=== PATIENT | male | born 1930 | race Caucasian/White ===

== ENCOUNTER 2016-08-08 13:53 | Emergency (ER) | payer OTHER ==
[~2016-08-08] VITALS: Ht 177.8 cm; Wt 100.0 kg
[~2016-08-08 13:53] MED LIST: COEN200C4 PEG; DVN80 PO; OMEG10007 PO; PLV75 PO; ROSU5TAB PO; TPRSR50 PO
[2016-08-08 14:04] VITALS: TEMP 36.9; Ht 177.8 cm; Wt 100.0 kg
--- NOTE | 2016-08-08 14:40 | DIAGNOSTIC IMAGING REPORT ---
RIGHT FOOT MIN 3 VIEWS ROUTINE CLINICAL HISTORY: Right foot pain. Trauma. COMPARISON: None DISCUSSION: No acute fractures are visualized. There are no erosive or destructive changes. There are mild degenerative changes. Periarticular calcifications are visualized at the level of the second and third metatarsal phalangeal joints. IMPRESSION: No acute fractures or dislocations identified. Electronically signed by: Evin Obrien M.D. 08/08/2016 2:38 PM Dictated Date/Time: 08/08/2016 2:37 PM
--- NOTE | 2016-08-08 15:16 | EMERGENCY ROOM VISIT NOTE ---
ED Visit Note First contact with patient: 14:09 CHIEF COMPLAINT: Right foot injury 1 hour ago HISTORY OF PRESENT INJURY: Patient is an 86-year-old white male who presents to the emergency department for evaluation of right foot pain that began one hour ago. He notes that he has been having pain in the bottom of his right foot laterally for a few weeks. 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 He did not injure himself in the fall. He has pain when he tries to bear weight on the foot. He lives at [place], and his went to the wellness center. They put him in a wheelchair and were able to get him in the vehicle. He has not had any medication for discomfort which he rates a 3/10 presently. No numbness or weakness. REVIEW OF SYSTEMS: Review of systems as per HPI. All other systems reviewed were negative. At least 6 systems reviewed. PMH: Electronic medical records are reviewed and summarized as above/below. See Problem List. SOCIAL HISTORY: The patient lives at home with his . PHYSICAL EXAM: Vital Signs: Reviewed Nurse's notes. GENERAL: Patient is a pleasant, well-appearing 86-year-old white male who is awake and alert and seated in a wheelchair in no acute distress. Appears generally than his stated age. MUSCULOSKELETAL: Examination of the right foot and ankle do not note any obvious swelling, deformity or ecchymosis. He has tenderness to palpation on the plantar aspect of the foot along the fifth metatarsal. He does not have any pain over the metatarsal heads or over the arch of the foot and no pain over the plantar fascia distribution. He does not have any pain on the dorsum of the foot. No pain over the medial or lateral malleolus or the lateral ankle ligaments. Lisfranc joint is negative. Distal pulses are easily palpable. Sensation to light touch is intact. Range of motion limited secondary to pain. The skin is intact. EMERGENCY DEPARTMENT COURSE: Patient declined medication for discomfort. X- rays of the right foot were obtained and were negative for acute fracture. Differential diagnosis includes fracture, sprain, dislocation, contusion, stress fracture, among others. The patient was fitted with a postoperative shoe and instructed on a weight bear as tolerated gait using crutches. He is encouraged to follow-up with orthopedics if his symptoms are not improving in the next 3-5 days. RIGHT FOOT MIN 3 VIEWS ROUTINE CLINICAL HISTORY: Right foot pain. Trauma. COMPARISON: None DISCUSSION: No acute fractures are visualized. There are no erosive or destructive changes. There are mild degenerative changes. Periarticular calcifications are visualized at the level of the second and third metatarsal phalangeal joints. IMPRESSION: No acute fractures or dislocations identified. Problem List Medical Problems: (1) CAD (coronary artery disease) Status: Chronic (2) Diverticulitis Status: Resolved (3) Exertional chest pain Status: Resolved (4) H/O heart artery stent Status: Chronic (5) Pacemaker Status: Chronic Current/Historical Medications Scheduled Clopidogrel Bisulfate (Clopidogrel), 75 MG PO QAM Coenzyme Q10 (Ubidecarenone) (Co Q-10), 200 MG PO DAILY Dexlansoprazole (Dexilant), 60 MG PO TFS Fish Oil ([place]-3), 4,800 MG PO DAILY Isosorbide Mononitrate Ext Rel (Imdur Ext Rel), 120 MG PO QAM Metoprolol Succinate (Metoprolol Succinate ER), 50 MG PO QAM Probiotic Product (Probiotic), 1 CAP PO DAILY Pyridoxine (Vitamin B6), 100 MG PO DAILY Rivaroxaban (Xarelto), 20 MG PO DAILY Rosuvastatin Calcium (Crestor), 5 MG PO DAILY Valsartan (Diovan), 80 MG PO DAILY Allergies Coded Allergies: Unclassified Drugs (Verified Adverse Reaction, Unknown, sleeping medications cause oversedation, 03/09/16) Uncoded Allergies: ANESTHESIA (Adverse Reaction, Severe, NAUSEA, 08/08/16) IT TAKES THE PATIENT A LONG TIME TO COME OUT OF IT AND IT MAKES HIM NAUSEA UNK MUSCLE RELAXANT (Adverse Reaction, Unknown, GI SYMPTOMS, 08/26/15) Vital Signs Date Time Temp Pulse Resp B/P Pulse Ox O2 Delivery O2 Flow Rate FiO2 08/08/16 15:35 66 18 109/71 95 08/08/16 14:04 36.9 66 18 99/64 91 Room Air Departure Information Impression Primary Impression: Right foot sprain Referrals Kareem Sanchez M.D. (PCP) Patient Instructions My [facility] Additional Instructions Acetaminophen(Tylenol) may be used for fever or pain. Use 1000mg every six hours as needed. Avoid using more than 3000mg in a 24 hour period. This medication can be taken if you need to drive, work, or perform activities which may be dangerous when taking narcotic pain medication. Ice compresses for 20 minutes at a time four times daily for 2-3 days. Use the postoperative shoe and walker as instructed. Rest and elevate your injury. Continue current medications. Return to the ER immediately for any numbness, tingling, severe pain, extreme swelling in the extremity or as needed. Follow-up with your primary care provider or orthopedic surgery if your symptoms are not improving in the next 3-5 days.
[2016-08-08 15:35] VITALS: BP 109/71; PULSE 66; O2SAT 95
--- NOTE | 2016-08-09 10:25 | EMERGENCY ROOM VISIT NOTE ---
ED Visit Note First contact with patient: 14:09 I have personally evaluated this patient examined her and reviewed the pertinent labs and data. I have discussed the case with Tamie Mckeon,the physician medicine assistant and agree with the plan. Please refer to the PA note This patient comes in after having right foot pain. This has been going on for several days however he injured it again today. He has some mild tenderness on my exam and the midfoot and slightly laterally. It is not red or warm or swollen. He has normal Achilles function. He has bounding pulses. He has nothing to suggest DVT. He is no proximal tenderness in the leg or the ankle. X-rays do not show any fractures. He appears have a foot sprain. We will have him use a fracture shoe and rest, ice, and elevate. follow-up with his regular doctor or orthopedist for recheck.
[2016-08-22] MEDS ORDERED: ASPEC81 PO (11:22)
[2016-08-22] MEDS ORDERED: AMLO2.5T PO (11:22)
[2016-08-22] MEDS ORDERED: VALS40TA2 PO (11:22)
[2017-01-29] MEDS ORDERED: DEXL60CA4 PO (08:27)
[2017-01-29] MEDS ORDERED: MISCCAP80 PO (08:27)
[2017-01-29] MEDS ORDERED: RIVA1TAB4 PO (08:27)
[2017-01-29] MEDS ORDERED: ISOS120T5 PO (11:04)
[2017-01-29] MEDS ORDERED: PYRI100T4 PO ×2 (11:05→20:59)
[2017-01-29] MEDS ORDERED: COEN1CAP37 PO (14:33)
[2017-01-29] MEDS ORDERED: OMEG10007 PO (14:37)
[2017-01-29] MEDS ORDERED: RANO500T PO (15:28)
== END 2016-08-08 15:36 | disposition home or self-care (01) ==
LOC: C.EDB 13:54 → C.EDD 15:36
DX: S93.601A Unspecified sprain of right foot, initial encounter (principal); X50.9XXA Other and unspecified overexertion or strenuous movements or postures, initial encounter; Y93.H2 Activity, gardening and landscaping; I25.10 Atherosclerotic heart disease of native coronary artery without angina pectoris; Z95.5 Presence of coronary angioplasty implant and graft; Z95.0 Presence of cardiac pacemaker

== ENCOUNTER 2016-08-22 08:29 | Observation (INO) | payer OTHER ==
[~2016-08-22] VITALS: Ht 180.3 cm; Wt 102.6 kg
[2016-08-22] VITALS (7 sets, daily range): BP systolic 99–143; BP diastolic 65–81; PULSE 65–70; TEMP 36.3–36.8; O2SAT 95–98; Ht 180.3 cm; Wt 102.6 kg
[~2016-08-22 08:29] MED LIST changes: -COEN200C4 PEG; -OMEG10007 PO
[2016-08-22] MEDS ORDERED: NiCARDipine HCL INJ 2.5 MG/ML 10 ML AMP ONE (09:17)
[2016-08-22] MEDS ORDERED: MIDAZOLAM HCL 1 MG/ML 2ML VIAL ONE (09:18)
[2016-08-22] MEDS ORDERED: HEPARIN SOD (PORCINE) 1000 UNIT/ML 10 ML VIAL ONE (09:18)
[2016-08-22] MEDS ORDERED: NITROGLYCERIN/D5W 100MCG/ML 20ML SYR ONE (09:19)
[2016-08-22] MEDS ORDERED: FENTANYL CITRATE INJ 50 MCG/1 ML 2 ML VIAL ONE (09:19)
--- NOTE | 2016-08-22 09:37 | History & Physical Bridge Note ---
H&P Re-Evaluation Bridge Note: I have examined the patient, reviewed the History & Physical and in the interval since the performance of the History & Physical I have noted the following changes of clinical significance: No changes noted
--- NOTE | 2016-08-22 09:38 | Procedure Note ---
Pre-Mod Sedation Assessment General Date of Moderate Sedation: August 22, 2016. Vital Signs: Vital Signs Past 12 Hours Date Time Temp Pulse Resp B/P Pulse Ox O2 Delivery O2 Flow Rate FiO2 08/22/16 08:50 36.7 68 16 99/65 98 Room Air Review Cardiovascular: regular rate, rhythm, no edema Abdomen: normal bowel sounds, non tender Lungs: chest non-tender, lungs clear Airway Class: III Pre-Sedation Airway Assessment Oral Cavity: WNL Able to Visualize Vocal Cords: No Short Thick Neck: No Hx of Sleep Apnea: No Smoking Status: Former Smoker Mallampati Classification: Class III ASA Classification: Class III Procedure Planning Contraindications-for Mod Sed: None Yes Notes The planned sedation has been discussed with the patient and consent obtained. I have identified the patient, determined the appropriateness of sedation and have assessed the patient immediately prior to the procedure. All medicine(s) and interventions are by my order.
[2016-08-22] MEDS ORDERED: ADENOSINE IV SOLN 3 MG/ML 20 ML VIAL ONE (10:09)
[2016-08-22] MEDS: ADENOSINE IV SOLN 3 MG/ML 20 ML VIAL ONE (10:11)
--- NOTE | 2016-08-22 11:06 | Procedure Note ---
Post-Mod Sedation Assessment General Date of Moderate Sedation August 22, 2016. Vital Signs: Vital Signs Past 12 Hours Date Time Temp Pulse Resp B/P Pulse Ox O2 Delivery O2 Flow Rate FiO2 08/22/16 08:50 36.7 68 16 99/65 98 Room Air Review - Discharge Criteria Vital Signs Stable: Yes Alert/Oriented/Conversant: Yes Returned to Baseline Mental St: Yes Nausea Absent/Minimal: Yes Pain/Discomfort/Absent/Minimal: Yes Normal/Baseline Respirations: Yes Active Bleeding?: No Pt Received D/C Instructions: Yes Prescriptions Given: Transmitted Specific Proced. D/C Criteria Distal Pulses Present (Cardiac: Yes Groin site assessed-Card Cath: N/A Voided Prior To Discharge: N/A Discharged Patients Adult Escort/Transportation: Yes
--- NOTE | 2016-08-22 11:19 | Cardiac Catheterization ---
Procedure Note Procedure Date August 22, 2016. 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 Ron Sales Service Supervisor(s) Liu Estimated Blood Loss 18 Medication(s) Fentanyl, Heparin, Nitroglycerin, Versed, Lidocaine 1% Summary of Findings Indication: Angina, dyspnea on exertion Access: 6Fr Right Radial artery Catheters: [place], JL 3.5, JR 4; Ikari 3.5 guide Findings: LM - Ostial 20% stenosis LAD - Proximal and mid segment stents are widely patent. Distal to mid segment stent 30-40% stenosis. 70-80% very distal segment stenosis prior to vessel wrapping around apex. 1st diagonal with 70% ostial stenosis. 2nd diagonal 40- 50% ostial stenosis. Circumflex - 30-40% proximal stenosis. 40-50% proximal stenosis in OM2 RCA - Dominant, 40-50% distal focal stenosis. Distal luminal irregularities in PDA/PLBs. LVEDP - 11 FFR of RCA performed with Ikari 3.5 guide and straight FFR wire. FFR distal RCA 0.97 Attempt made at balloon angioplasty of very distal LAD. Unable to easily pass balloon into distal vessel. Decision made to abort procedure as net clinical benefit of continued attempts at procedure seemed limited. Arterial Closure: TR Band Summary: 1. Moderate to severe multivessel coronary artery disease - Patent proximal and mid LAD stents - 40-50% distal RCA (FFR 0.97) - 40-50% proximal circumflex, OM2 - 70-80% very distal LAD 2. Normal intracardiac filling pressure Recommendations: Optimize anti-anginal regimen -- continue metoprolol and imdur. Will reduce valsartan and add amlodipine. Will titrate as able. If continued symptoms ranexa an option. Continued ASCVD risk factor modification Now 6 months out from prior stent -- can discontinue plavix and continue ASA 81 mg and Xarelto. Follow-up with me in 2-3 weeks. Hemodynamics Rest Ao: 98/58/72 Specimens None Radiation Exposure (mGy) 3903 Contrast (mls) 145 Visipaque Fluids (cc crystalloids) 110 Drains None Anesthesia Moderate (Start Procedural Complication(s) None Disposition Events Intern Holding/Recovery ACC Data Cardiac Status Clinical evaluation leading to the procedure CAD Presntation: Unstable angina Anginal Classification: CCS III Heart Failure: No, NYHA Class: CCS I Cardiogenic Shock w/in 24Hrs: No Cardiac Arrest w/in 24Hrs: No Imaging studies past 6 months: No Stress studies past 6 months: No Standard Exercise Stress Test: No Stress Echocardiogram: No Stress Testing w/SPECT MPI: No Cardiac CTA: No Coronary Anatomy Dominant: Right Left Main (% Stenosis): Ostial (20) LAD (% Stenosis): Distal (70-80) D1 (% Stenosis): Ostial (70) D2 (% Stenosis): Ostial (40) Circumflex (% Stenosis): Proximal (40) OM2 (% Stenosis): Proximal R PDA (% Stenosis): Distal (40) Diagnostic Physician's Name: Jorge Ron MD Status: Elective Closure Device Percutaneous Entry Location: Radial Closure Device: Radial Band Recommendations: Medical therapy and/or Counseling Intraprocedure Events Significant Dissection: No Perforation: No
[2016-08-22] MEDS ORDERED: VALS40TA2 PO (11:22)
[2016-08-22] MEDS ORDERED: AMLO2.5T PO (11:22)
[2016-08-22] MEDS ORDERED: ASPEC81 PO (11:22)
--- NOTE | 2016-08-22 11:23 | Discharge Instructions ---
Discharge Instructions Procedure Procedure Date: August 22, 2016. Reason for Visit: Cad *. Discharge Discharge Date: August 22, 2016. Discharge Diagnosis: Coronary artery disease Last Recorded Wt (Kilograms): 101.5 Anesthesia Post Anesthesia Instructions: If you have had General Anesthesia or IV Sedation: * Do not drive today. * Resume driving when surgeon permits. * Do not make important decisions or sign legal documents today. * Call surgeon for: 1. Temperature elevations greater than 101 degrees F. 2. Uncontrollable pain. 3. Excessive bleeding. 4. Persistent nausea and vomiting. 5. Medication intolerance (nausea, vomiting or rash). * For nausea and vomiting use only clear liquids such as: tea, soda, bouillon until nausea subsides, then gradually increase diet as tolerated. * If you have any concerns or questions, call your surgeon's office. If physician is unavailable and it is an emergency, call 911 or go to the nearest emergency room. Instructions Activity Recommendations: limitations as noted below Recommended Home Diet: resume previous diet Allergies: Coded Allergies: Unclassified Drugs (Verified Adverse Reaction, Unknown, sleeping medications cause oversedation, 03/09/16) Uncoded Allergies: ANESTHESIA (Adverse Reaction, Severe, NAUSEA, 08/08/16) IT TAKES THE PATIENT A LONG TIME TO COME OUT OF IT AND IT MAKES HIM NAUSEA UNK MUSCLE RELAXANT (Adverse Reaction, Unknown, GI SYMPTOMS, 08/26/15) Follow Up Additional Instructions: ACTIVITY RECOMMENDATIONS: It is common to feel weak and fatigue for a few days. * Do not drive or operate any motorized equipment for the next 2 days. * Limit stair usage (2 or 3 trips a day only) for the next 2 days. * Do not lift anything heavier than 10 pounds for the next three days. * Do not engage in vigorous exercise or any sports for the next five days. * You may shower the day after your procedure, but do not immerse the area for three days. Cleanse the site gently with soap and water. SPECIAL CARE INSTRUCTIONS: * You may replace the pressure dressing or band-aid the morning after the procedure. * After your procedure, it is normal to have a small bruise or small lump at the site. Examine your site daily for any change in the bruise or lump, redness, swelling, drainage or numbness. Notify your doctor if any change. BLEEDING: * If there is a small amount of bleeding at the site, lie down and apply firm pressure with a clean cloth for ten minutes. When the bleeding stops, lie quietly keeping the procedure limb straight for six hours. Notify your doctor as soon as possible. * If the bleeding does not stop after ten minutes or if there is a large amount of bleeding or spurting, call 911 immediately. Continue to lie down and hold firm pressure until help arrives. SKIN IRRITATION: * You may experience some redness and/or swelling in the area where radiation was administered. If any skin irritation occurs, please contact your family physician. FOLLOW UP VISIT: Keep any scheduled doctor appointments. Follow-up with: Dr. Ron in 2-3 weeks [facility] Recommendations: Call your doctor if: * Temperature above 101 degrees * Pain not relieved by pain medicine ordered * There is increased drainage or redness from any incision * You have any unanswered questions or concerns. Your Doctors Instructions noted above were prepared by provider Konrad Ron. Patient Signature Section: Patient Instructions Signature Page Graham Galeano Patient (or Guardian) Signature/Date: I have read and understand the instructions given to me by my caregivers. Caregiver/RN/Doctor Signature/Date: The above-named patient and/or guardian has received patient instructions on this date. + Original Patient Signature Page (only) stays with chart. Please make copy for patient.
[2016-08-22] MEDS ORDERED: SODIUM CHLORIDE 0.9% 1000ML 1,000 ML IV SCH (13:26)
[2016-08-22] MEDS ORDERED: ACETAMINOPHEN 325 MG TAB PO PRN (13:30)
[2016-08-22] MEDS ORDERED: ONDANSETRON INJ 2 MG/ML 2 ML VIAL IV PRN (13:30)
[2016-08-22] MEDS ORDERED: IV FLUIDS COMPLETED PRN (14:00)
[2016-08-22 15:59] LABS: MEAN CELL VOLUME 92.6 fL (80-100); MEAN CORPUSCULAR HEMOGLOBIN 30.5 pg (25-34); MEAN CORPUSCULAR HGB CONC 32.9 g/dl (32-36); MEAN PLATELET VOLUME 8.9 fL (7.4-10.4); PLATELET COUNT 193 K/uL (130-400); RED BLOOD COUNT 4.43 M/uL (4.7-6.1); WHITE BLOOD COUNT 6.65 K/uL (4.8-10.8)
[2016-08-22 16:23] LABS: BUN/CREATININE RATIO 13.8 (10-20); CALCIUM 8.7 mg/dl (8.5-10.1); CREATININE 0.89 mg/dl (0.60-1.40)
--- NOTE | 2016-08-22 17:10 | ECHOCARDIOGRAM REPORT ---
*NOTICE TO RECEIVING CONSTITUTION PARTY AGENCY This information is strictly Confidential and protected under [place] law. [place] law prohibits you from making any further disclosure of this information unless further disclosure is expressly permitted by the written consent of the person to whom it pertains or is authorized by law. A general authorization for the release of medical or other information is not sufficient for this purpose. Hospital accepts no responsibility if the information is made available to any other person, INCLUDING THE PATIENT. Interpretation Summary * Name: TOBIAS DOAN Study Date: 08/22/2016 01:46 PM BP: 125/77 mmHg * Patient Location: C.CATH HR: 65 * : 1930 (M/d/yyyy) Gender: Male Height: 70 in * Age: 86 yrs Ethnicity: [place] Weight: 223 lb * Ordering Physician: MD Jorge Ron MD * Referring Physician: Jorge Ron * Performed By: Barbara Angela * * Reason For Study: CHEST PAIN * BSA: 2.2 m2 * -- Conclusions -- * Limited Echo to assess LV wall motion * 1. Normal LV size. Mild concentric LVH. * 2. Normal LV systolic function. LVEF 50-55%. Abnormal septal motion consistent with pacemaker activation. * 3. Moderately dilated RV with grossly normal RV function. * 4. Mild LA dilation. Severe RA dilation. * 5. No prior studies for comparison. Procedure Details * Left Ventricle The left ventricle is grossly normal size. There is mild concentric left ventricular hypertrophy. Ejection Fraction = 50-55%. Septal motion is consistent with conduction abnormality. * Right Ventricle The right ventricle is moderately dilated. There is a pacemaker lead in the right ventricle. The right ventricular systolic function is normal. * Atria The left atrium is mildly dilated. The right atrium is severely dilated. * Mitral Valve The mitral valve leaflets appear thickened, but open well. There is no mitral valve stenosis. * Tricuspid Valve The tricuspid valve is not well visualized, but is grossly normal. * Great Vessels The aortic root and proximal ascending aorta are normal sized. * Pericardium/Pleural There is no pericardial effusion. * * MMode 2D Measurements and Calculations * IVSd 1.2 cm * IVSs 1.8 cm * * LVIDd 4.1 cm * LVIDs 2.9 cm * LVPWd 1.3 cm * LVPWs 2.1 cm * * IVS/LVPW 0.93 * FS 28.4 % * EDV(Teich) 74.8 ml * ESV(Teich) 33.5 ml * EF(Teich) 55.3 % * * EDV(cubed) 69.6 ml * ESV(cubed) 25.6 ml * EF(cubed) 63.3 % * % IVS thick 51.3 % * % LVPW thick 63.0 % * * LV mass(C)d 186.5 grams * LV mass(C)dI 85.3 grams/m\S\2 * LV mass(C)s 255.6 grams * LV mass(C)sI 116.9 grams/m\S\2 * * CO(Teich) 2.7 l/min * CI(Teich) 1.2 l/min/m\S\2 * SV(Teich) 41.4 ml * SI(Teich) 18.9 ml/m\S\2 * CO(cubed) 2.9 l/min * CI(cubed) 1.3 l/min/m\S\2 * SV(cubed) 44.1 ml * SI(cubed) 20.2 ml/m\S\2 * * LA dimension 5.2 cm * * LVAd ap4 28.5 cm\S\2 * LVLd ap4 7.6 cm * EDV(MOD-sp4) 89.0 ml * LVAs ap4 18.5 cm\S\2 * LVLs ap4 7.3 cm * ESV(MOD-sp4) 39.7 ml * EF(MOD-sp4) 55.4 % * * LVAd ap2 24.2 cm\S\2 * LVLd ap2 7.6 cm * EDV(MOD-sp2) 63.6 ml * LVAs ap2 14.9 cm\S\2 * LVLs ap2 6.5 cm * ESV(MOD-sp2) 27.8 ml * EF(MOD-sp2) 56.3 % * * CO(MOD-sp4) 3.2 l/min * CI(MOD-sp4) 1.5 l/min/m\S\2 * SV(MOD-sp4) 49.3 ml * SI(MOD-sp4) 22.6 ml/m\S\2 * * CO(MOD-sp2) 2.3 l/min * CI(MOD-sp2) 1.1 l/min/m\S\2 * SV(MOD-sp2) 35.8 ml * SI(MOD-sp2) 16.4 ml/m\S\2 * * *
--- NOTE | 2016-08-22 21:45 | DIAGNOSTIC IMAGING REPORT ---
HEAD CT NONCONTRAST CT DOSE: 1326.81 mGy.cm HISTORY: Pain. Neuropathy. left sided numbness TECHNIQUE: Multiaxial CT images of the head were performed without the use of intravenous contrast. Comparison: None. Findings: Opacified right maxillary sinus. The calvarium and skull base are intact. The ventricles and sulci are within normal limits. There is no mass, hematoma, midline shift, or acute infarct. Mild chronic small vessel change of aging. Impression: No acute intracranial abnormality. Chronic small vessel change of aging. Opacified right maxillary sinus. Electronically signed by: Nick Haley M.D. 08/22/2016 9:44 PM Dictated Date/Time: 08/22/2016 9:43 PM
[2016-08-23 03:22] VITALS: BP 98/62; PULSE 67; TEMP 36.5; O2SAT 94
[2016-08-23 07:52] VITALS: BP 109/67; PULSE 66; TEMP 37; O2SAT 96
[2016-08-23] MEDS ORDERED: ROSUVASTATIN CALCIUM 10 MG TAB PO SCH (09:00)
[2016-08-23] MEDS ORDERED: ASPIRIN 81 MG ECTAB PO SCH (09:00)
[2016-08-23] MEDS ORDERED: ISOSORBIDE MONONITRATE 60 MG TABCR PO SCH (09:00)
[2016-08-23] MEDS ORDERED: PYRIDOXINE HCL 50 MG TAB PO SCH (09:00)
[2016-08-23] MEDS ORDERED: METOPROLOL SUCC 50MG EXT REL TAB PO SCH (09:00)
[2016-08-23] MEDS ORDERED: PANTOprazole SOD 40 MG TAB PO SCH (09:00)
[2016-08-23] MEDS ORDERED: VALSARTAN 80 MG TAB PO SCH (09:00)
[2016-08-23 10:13] VITALS: BP 109/67; PULSE 66; TEMP 37; O2SAT 96
--- NOTE | 2016-08-31 00:04 | DISCHARGE SUMMARY ---
DISCHARGE DIAGNOSIS: Coronary artery disease. PROCEDURES: 1. Cardiac catheterization. 2. FFR of RCA. CONSULTS: None. HISTORY OF PRESENT ILLNESS: Mr. Galeano is an 86-year-old man, with a history of coronary artery disease, status post prior stents to his LAD, who was sent for cardiac catheterization in the setting of worsening chest pain, dyspnea on exertion and concern for accelerating angina. Patient's last PCI was in February 2016 with stent to his mid-LAD by Dr. Fernandez. He is followed by Dr. Buchanan from cardiology as an outpatient. HOSPITAL COURSE: Patient underwent cardiac catheterization via his right radial artery on 08/22/2016. Findings notable for a patent LAD stent and very distal 70%-80% stenosis in the distal LAD as wrapped around the apex, which was previously noted. In addition, patient was noted to have a 40%-50% distal focal stenosis in his RCA. Decision was made to perform FFR of the RCA, which was negative at 0.97. In addition, consideration was given to possible balloon angioplasty of the distal LAD region. Attempt was made, however, was unable to easily pass any balloons to the distal vessel due to prior stenting and the procedure was aborted. Following procedure, patient endorsed some left upper extremity pain and numbness and as a result, was admitted for observation. Patient received IV fluids, underwent a limited echo, which showed preserved LV function without wall motion abnormalities. Also, underwent a CT scan of his head, which showed no acute intracranial process. Troponin I was minimally elevated post procedure but the patient's symptoms gradually resolved overnight. He had no arrhythmias on telemetry and by the next day, he was back to baseline and thought safe for discharge. Patient was discharged to home and will follow up with cardiology within the next month. DISCHARGE MEDICATIONS: 1. Amlodipine 2.5. 2. Aspirin 81. 3. Coenzyme Q10 200 mg. 4. Dexilant 60 mg. 5. Fish oil 1 capsule 4800 mg p.o. daily. 6. Imdur 140 mg q.a.m. 7. Metoprolol succinate 15 mg q.a.m. 8. Xarelto 20 mg daily. 9. Vitamin B6. 10. Rosuvastatin 5 mg daily. 11. Valsartan 40 mg daily. 12. Clopidogrel 75 mg daily. MTDD
[2017-01-29] MEDS ORDERED: MISCCAP80 PO (08:27)
[2017-01-29] MEDS ORDERED: DEXL60CA4 PO (08:27)
[2017-01-29] MEDS ORDERED: RIVA1TAB4 PO (08:27)
[2017-01-29] MEDS ORDERED: ISOS120T5 PO (11:04)
[2017-01-29] MEDS ORDERED: PYRI100T4 PO ×2 (11:05→20:59)
[2017-01-29] MEDS ORDERED: COEN1CAP37 PO (14:33)
[2017-01-29] MEDS ORDERED: OMEG10007 PO (14:37)
[2017-01-29] MEDS ORDERED: RANO500T PO (15:28)
== END 2016-08-23 12:14 | disposition home or self-care (01) ==
LOC: ENRESERVDT → ENRESERVTM → C.CATH 08:29 → CANBEDREQ 10:55 → C.2T 13:33
PROVIDERS: ADMIT Internal Medicine Interventional Cardiology; ATTEND Internal Medicine Interventional Cardiology
DX: I25.10 Atherosclerotic heart disease of native coronary artery without angina pectoris (principal)

== ENCOUNTER → 2016-09-11 | Outpatient (CLI) | payer OTHER ==
[~2016-09-11] MED LIST changes: +AMLO2.5T PO; +ASPEC81 PO; +ASPI81TA28 PO; +COEN1CAP37 PO; +DEXL60CA4 PO; -DVN80 PO; +ISOS120T5 PO; +METO50TA7 PO; +MISCCAP80 PO; +NTRGSL/4 UT; +OMEG10007 PO; -PLV75 PO; +PYRI100T4 PO; +RANO500T PO; +RIVA1TAB4 PO; +VALS40TA2 PO
[2016-09-11 11:23] LABS: BLOOD UREA NITROGEN 15 mg/dl (7-18); BUN/CREATININE RATIO 16.5 (10-20); CARBON DIOXIDE 24 mmol/L (21-32); CHLORIDE 106 mmol/L (98-107); CREATININE 0.91 mg/dl (0.60-1.40); GLUCOSE 120 mg/dl (70-99); POTASSIUM 4.1 mmol/L (3.5-5.1); SODIUM 140 mmol/L (136-145)
== END | disposition home or self-care (01) ==
LOC: C.LABVPSUW 10:49
PROVIDERS: ATTEND Internal Medicine Critical Care Medicine
DX: N28.9 Disorder of kidney and ureter, unspecified (principal); E03.9 Hypothyroidism, unspecified

== ENCOUNTER → 2016-10-15 | Outpatient (CLI) | payer OTHER ==
[~2016-10-15] MED LIST changes: -ASPI81TA28 PO; -METO50TA7 PO; -NTRGSL/4 UT
--- NOTE | 2016-10-16 05:25 | PAP/PSG TECHNICIAN REPORT ---
[facility] Records Specialist Polysomnogram Report Study name: None Report date: 10/16/2016 Study date: 10/15/2016 Referring Physician: Kareem Sanchez M.D. Name: TOBIAS DOAN Interpreting Physician: Harjeet Calvo D.O. Date of : 1930 Records Specialist: Yohana Villatoro [facility]. Sex: Male Age: 86 StudyType: PSG Weight: 220 lbs Height: 86 years, Height 6' 0" Neck Circum: 43.5 cm BMI: 29.83 Medications: Aspirin 81 mg, Ranexa 500 mg, Norvasc 2.5 mg, Fish Oil, Toprol XL 50 mg, ProBiotic, Isosorbide, CoQ10 100 mg, Xarelto 20 mg, Flovent, Valsartan 80 mg, Dexilant 60 mg Patient History 86 yr. old male here for a diagnostic sleep study in room6. Patient has a history of RV enlargement and atrial fibrillation. Patients' states that he makes noises in his sleep, sounds like a snort. He is also restless and wakes 4-5 times to cindi the restroom. Gilby Sleepiness Scale Score is 8/24. Parameters Monitored NPSG: E1-M2, E2-M1, Fp1-M2, Fp2-M1, F3-M2, F4-M2, F4-M1, C3-M2, C4-M2, C4-M1, O1-M2, O2-M2, O2-M1, T3-M2, T4-M1, P3-M2, P4-M1, CHIN1, CHIN2, HR, EKG, Legs, PFLOW, SNOR, FLOW, CFLOW, Tidal Volume, THOR, ABDO, SpO2, PLTH, CPRESS, ETCO2 Wave, ETCO2, pH Sleep Architecture Sleep Stages Time at Lights Off 10:45:30 PM STAGES Time (min.) TST (%) Time at Lights On 5:11:00 AM Wake 182.0 -- Total Recording Time (TRT) 386.00 min. N1 45.0 22 Total Sleep Period (TSP) 334.0 min. N2 116.5 57 Total Sleep Time (TST) 203.5min. N3 3.0 1 Awake Time 182.5 min. REM 39.0 19 Wake after Sleep Onset 177.0 min. Sleep Efficiency (SE) 53 % Sleep Onset Latency (MELINDA) 5.0 min. Number of Stage 1 Shifts None Awakenings 32 Stage Changes 92 Number of REM periods 7 REM 39.0 19 REM Latency 41.0 min. NREM 164.5 81 Body Position Analysis Supine Right Left Side Prone Vertical Total Sleep Time (min.) 23.6 138.0 21.0 159.00 0.0 66.4 Total Sleep Time (%) 0% 68% 10% 78 0% 100% Total Sleep Time REM (min.) 0.0 35.0 4.0 None 0.0 0.0 Total Sleep Time NREM (min.) 0.5 103.0 17.0 None 0.0 44.0 Intermittent Wake (min.) 23.1 66.1 69.8 None 0.0 22.4 Total Sleep Period (%) 7% None None None None None Arousals Myoclonus (PLM) * Events Count Index Events Count Index Spontaneous 10 3 Events Awake (PLMW) 257 84.7 Respiratory 2 0.6 Events Asleep w/ Arousal (PLMA) 15 4.4 PLM 15 4 Events Asleep w/o Arousal (PLMS) 106 31.3 Snoring 11 3 Total Asleep 121 35.7 Total 38 11 Total 378 59 Respiratory Analysis * CA OA MA CH H RERA Total Count 0 0 0 0 29 0 29 Index 0.0 0.0 0.0 0 8.6 0 8.6 Mean Duration 0.0 0.0 0.0 0.00 26.1 0.0 26.1 Longest Duration 0.0 0.0 0.0 0.00 0.0 0.0 96.7 Respiratory Event Summary Total Supine ~Supine Right Left Prone REM NREM Apneas Count 0 0 0 0 0 N/A 0 0 Index 0.0 0 0 0.0 0.0 N/A 0 0 Hypopneas (4% Desat) Count 29 0 29 16 8 N/A 9 20 Index 8.6 0.0 9 7.0 22.9 N/A 13.8 7.3 Apneas & All Hypopneas Count 29 0 29 16 8 N/A 9 20 Index 8.6 0 9 7 23 N/A 13.8 7.3 Respiratory Events (Military Pay Clerk+All Hyp+RERA) Count 29 0 29 16 8 N/A 9 20 Index 8.6 0 9 7.0 22.9 N/A 13.8 7.3 Respiratory Related Arousal Count 2 0 2 1 0 N/A 0 2 Index 0.6 0 1 0 0 N/A 0 1 Snoring Analysis Supine Right Left Prone REM NREM Total Snore duration 3.1 min Snores count 0 32 8 N/A 6 60 66 Snore mean duration 2.8 Sec Snores index 0 14 23 N/A 9.2 21.9 19.5 TST with snoring (%) 1.5% Desaturation Event Summary: Minimum %SpO2 Event Count Mean/Min/Max Duration(sec.) Desaturation Index % Time In Bed > 90 82 31.8 / 13.5 / 59.0 41.2 31.8 86 - 90 39 30.8 / 10.3 / 59.0 9.4 66.2 81 - 85 0 N/A 0.0 1.9 76 - 80 0 N/A 0.0 0.0 71 - 75 0 N/A 0.0 0.0 66 - 70 0 N/A 0.0 0.0 61 - 65 0 N/A 0.0 0.0 56 - 60 0 N/A 0.0 0.0 51 - 55 0 N/A 0.0 0.0 < 50 0 N/A 0.0 0.0 Total REM NREM Awake <50% 0.0 min. 0.0 min. 0.0 min. 0.0 min. 51 - 60% 0.0 min. 0.0 min. 0.0 min. 0.0 min. 61 - 70% 0.0 min. 0.0 min. 0.0 min. 0.0 min. 71 - 80% 0.0 min. 0.0 min. 0.0 min. 0.0 min. 81 - 90% 255.8 min. 32.0 min. 132.9 min. 91.0 min. 91 - 100% 119.5 min. 7.0 min. 31.6 min. 80.8 min. Average 90 88 89 90 Minimum SpO2 84 84 85 84 Desaturation Event Index 14.5 13.8 12.8 16.5 # Desat. Events below 89% 75 9 32 34 Time(%) with Saturation below 89% 26.8 7.5 11.5 7.9 Time(min.) with Saturation below 89% 100.8 28.0 43.0 29.7 Time (mins) REM (mins) NREM (mins) % of TST SpO2 Below 90% 44 9 N35 59.9 SpO2 Below 88% 20 0 0 21 Heart Rate Analysis Min (bpm) Max (bpm) Average (bpm) Awake 58 250 68 NREM 65 76 65 REM 65 69 65 Overall 65 76 65 Supplemental O2 Values Minimum O2 level: None Value Start Time End Time Records Specialist Comments Mr. Doan slept in the right, left, supine and upright positions. Cardiac arrhythmia and PLMs noted. No bruxism noted. Snoring was noted and scored as a 2 on a scale of 0 through 5. (0=no snoring, 5=snoring loud enough to be heard through a closed door or down the rucker way) . Mr. Doan awoke to use the restroom twice during the night. Mr. Doan stated, his night was a little worse than usual. The final report will be interpreted and signed by a sleep physician. The completed physician report will then be placed in the patient medical record. Therapy (cm H2O) 0 TIB (min.) 385.5 TST (min.) 203.5 Sleep Onset (min.) 5.0 REM Onset From Sleep (min.) 41.0 Sleep Efficiency % 53 Wakefulness (%) 47 Wakefulness (min.) 182.5 NREM 1 (%) 22 NREM 1 (min.) 45.0 NREM 2 (%) 57 NREM 2 (min.) 116.5 NREM 3 (%) 1 NREM 3 (min.) 3.0 REM (%) 19 REM (min.) 39.0 # Arousals 38 Arousal Index 11 # Snore 66 Snore Index 19.5 AHI 8.6 AHI Supine 0 AHI Non-Supine 9 NREM AHI 7.3 REM AHI 13.8 RDI 8.6 # Obstructive Apnea 0 # Central Apnea 0 # Mixed Apnea 0 # Hypopneas 29 RERAs 0 Total Respiratory Events 51 Time Below SpO2 89% (min.) 71.0 Mean NREM SpO2 (%) 89 Mean REM SpO2 (%) 88 Mean Sleep SpO2 (%) 89 Min NREM SpO2 (%) 85 Min REM SpO2 (%) 84 Position Supine (min.) 23.6 Position Non-supine (min.) 203.0 LM Index Sleep 35.7 LM Index NREM 37.2 LM Index REM 29.2 Mean Heart Rate (bpm) 65 Min Heart Rate (bpm) 65
--- NOTE | 2016-10-18 17:44 | Sleep Study ---
Sleep Study Report Date of Service: 10/15/2016 Sleep Study Report Clinical data: Patient is an 86-year-old male with a BMI of 29.83. Has a history of making noises in his sleep, disturbed nocturnal sleep, and daytime tiredness. He has an Av[place] score of 8. There is a history of atrial fibrillation and right ventricular enlargement. Sleep apnea is to be excluded. Sleep architecture: Total sleep. Was 334.0 minutes. The total sleep time was 203.5 minutes. Sleep efficiency was severely reduced to 53 percent. Sleep latency was normal at 5 minutes. Wake after sleep onset was elevated at 177 minutes. The REM latency was short at 41 minutes. Sleep consisted of stage N1 22 percent, stage N2 57 percent, stage N3 1 percent, and stage REM 19 percent. Arousal data: The patient had 38 arousals including 10 spontaneous arousals, 2 respiratory arousals, 15 PLM arousals, and 11 snoring arousals. The arousal index is 11. PLM data: Patient had 121 periodic limb movements of sleep for an index of 35.7. There were 15 arousals associated with limb movements for a PLM arousal index of 4.4. Respiratory data: Patient had a total of 29 respiratory events, all hypopneas. Hypopneas were scored according to the 4 percent desaturation rule. The mean duration of the hypopneas was 26.1 seconds. The apnea-hypopnea index was 8.6 events per hour. This would be compatible with mild obstructive sleep apnea. Oximetry data: The average oxygen saturation was 90 percent. The minimum saturation was 84 percent. The patient had 100.8 minutes with saturations less than 89 percent. EKG: The cardiac rates ranged from 65 to 76 beats per minute. The rhythm was regular. It was difficult to determine the underlying rhythm as P-waves were not as well clarified. Mechanical Expert comments: The patient slept on the right, left, supine, and upright positions. PLMS were noted. No bruxism noted. Snoring was noted and scored as a 2 on a scale of 0 through 5. Patient awakened to use the restroom twice during the nighttime. Impressions: 1. Obstructive sleep apnea-mild 2. Periodic limb movement disorder Comments: The patient had a severe decrease in sleep efficiency. He had several prolonged episodes of wake. He had mild sleep apnea. There was also mild to moderate hypoxemia. There is a history of right ventricular enlargement and atrial fibrillation. There was no definite episodes of atrial fibrillation noted during the study. In light of the history of the RV enlargement and the atrial fibrillation consideration is strongly given to treatment of the underlying sleep apnea. Recommendations: 1. It is advised that the patient be given a trial of nasal CPAP. This could be accomplished by an in-lab CPAP titration study. He would need to be referred back for this. The alternative would be treatment with auto CPAP. 2. If the patient would refuse treatment with nasal CPAP therapy, it would be suggested that he have an overnight pulse oximetry study done to determine if he would be a candidate for nocturnal oxygen therapy, particularly with his history of right ventricular enlargement. 3. The patient had a moderate number of periodic limb movements but with few arousals. No treatment for the limb movement disorder is advised at present. The underlying sleep disordered breathing should be treated 1st with then reassessment of the legs situation. 4. Patient has a mild elevation of body mass index of 29.83. Weight loss would be advised as there is typically less respiratory events when there is weight reduction. Copies To 1: Harjeet Calvo DO; Kareem Sanchez M.D.
== END | disposition home or self-care (01) ==
LOC: C.NEUR 20:00
PROVIDERS: ATTEND Internal Medicine Critical Care Medicine
DX: I27.2 Other secondary pulmonary hypertension (principal); G47.33 Obstructive sleep apnea (adult) (pediatric)

== ENCOUNTER → 2016-11-21 | Outpatient (CLI) | payer OTHER | END | disposition home or self-care (01) | LOC: C.LABVPSUW 09:32 | PROVIDERS: ATTEND Internal Medicine Interventional Cardiology | DX: R06.09 Other forms of dyspnea (principal) ==

== ENCOUNTER → 2016-12-25 | Outpatient (CLI) | payer OTHER ==
--- NOTE | 2016-12-25 15:00 | DIAGNOSTIC IMAGING REPORT ---
ABD/PELVIS NO IV OR ORAL CONT CT DOSE: 1062.98 mGy.cm HISTORY: L obstruction R33.9 Incomplete emptying of bladder HISTORY OF STONES. TECHNIQUE: Multiaxial CT images of the abdomen and pelvis were performed without contrast. A dose lowering technique was utilized adhering to the principles of ALARA. COMPARISON STUDY: None. FINDINGS: Lung bases are clear. Configuration of liver is unremarkable. Prior cholecystectomy. Pancreas is unremarkable. Several small right renal cyst. No evidence for renal hydronephrosis. 2 mm nonobstructing calcification lower pole right kidney. Bowel pattern is nonobstructive. The appendix is normal. 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 Moderate atherosclerotic change abdominal aorta. Chronic sigmoid diverticulosis. No evidence for acute diverticulitis. Mild bladder distention. IMPRESSION: 1. Mild chronic sigmoid diverticulosis. 2. Stable aneurysmal distention left iliac artery. 3. Several small right renal cysts unchanged.. 4. Prior cholecystectomy. 5. Mild bladder distention The above report was generated using voice recognition software. It may contain grammatical, syntax or spelling errors. Electronically signed by: Nick Haley M.D. 12/25/2016 2:59 PM Dictated Date/Time: 12/25/2016 2:55 PM
== END | disposition home or self-care (01) ==
LOC: C.CTS 14:40
PROVIDERS: ATTEND Urology
DX: R33.9 Retention of urine, unspecified (principal); N28.1 Cyst of kidney, acquired

== ENCOUNTER → 2016-12-31 | Outpatient (CLI) | payer OTHER ==
--- NOTE | 2017-01-01 05:18 | PAP/PSG TECHNICIAN REPORT ---
[facility] Ignition Specialist Polysomnogram Report Study name: None Report date: 01/01/2017 Study date: 12/31/2016 Referring Physician: Kareem Sanchez M.D. Name: TOBIAS DOAN Interpreting Physician: Harjeet Calvo D.O. Date of : 1930 Ignition Specialist: Ragini Santamaria [facility]. Sex: Male Age: 86 StudyType: PSG PAP Weight: 220 lbs Height: 86 years, Height 6' 0" Neck Circum:43.5cm BMI: 29.83 Medications: ASA 81mg, Ranexa 500mg, Norvasc 2.5mg, Fish Oil, Toprol XL 50mg, Probiotic, Isosorbide 120MG, CoQ10 100mg, Xarelto 20mg, Flovent, Valsartan 80mg, Dexilant 60mg, B6 100mg, Nitroglycerine as needed Patient History Study started on room air with 4cwp cpap in room #8. 86 yr old male here tonight for a new titration study. He had a diagnostic psg done here on 10/15/16 that had an AHI of 8.6. His ESS=8/24. Neck circ=43.5cm. PLEASE SEND A COPY OF THIS REPORT TO DR. AARON GALVAN, HIS CONTENT DESIGNER. Parameters Monitored NPSG: E1-M2, E2-M1, Fp1-M2, Fp2-M1, F3-M2, F4-M2, F4-M1, C3-M2, C4-M2, C4-M1, O1-M2, O2-M2, O2-M1, T3-M2, T4-M1, P3-M2, P4-M1, CHIN1, CHIN2, HR, EKG, Legs, PFLOW, SNOR, FLOW, CFLOW, Tidal Volume, THOR, ABDO, SpO2, PLTH, CPRESS, ETCO2 Wave, ETCO2, pH Sleep Architecture Sleep Stages Time at Lights Off 10:51:26 PM STAGES Time (min.) TST (%) Time at Lights On 5:11:56 AM Wake 193.5 -- Total Recording Time (TRT) 380.50 min. N1 39.5 21 Total Sleep Period (TSP) 319.0 min. N2 108.5 58 Total Sleep Time (TST) 187.0min. N3 11.0 6 Awake Time 193.5 min. REM 28.0 15 Wake after Sleep Onset 191.5 min. Sleep Efficiency (SE) 49 % Sleep Onset Latency (MELINDA) 2.0 min. Number of Stage 1 Shifts None Awakenings 51 Stage Changes 141 Number of REM periods 7 REM 28.0 15 REM Latency 26.5 min. NREM 159.0 85 Body Position Analysis Supine Right Left Side Prone Vertical Total Sleep Time (min.) 29.1 102.1 69.9 172.00 0.0 0.0 Total Sleep Time (%) 8% 55% 37% 92 0% N/A% Total Sleep Time REM (min.) 0.0 24.0 4.0 None 0.0 0.0 Total Sleep Time NREM (min.) 15.0 78.1 65.9 None 0.0 0.0 Intermittent Wake (min.) 14.1 65.4 114.0 None 0.0 0.0 Total Sleep Period (%) 8% None None None None None Arousals Myoclonus (PLM) * Events Count Index Events Count Index Spontaneous 8 3 Events Awake (PLMW) 378 117.2 Respiratory 20 10.6 Events Asleep w/ Arousal (PLMA) 18 5.8 PLM 13 6 Events Asleep w/o Arousal (PLMS) 418 134.1 Snoring 0 0 Total Asleep 436 139.9 Total 41 13 Total 814 128 Respiratory Analysis * CA OA MA CH H RERA Total Count 0 3 1 0 47 0 51 Index 0.0 1.0 0.3 0 15.1 0 16.4 Mean Duration 0.0 15.6 27.3 0.00 37.1 0.0 35.6 Longest Duration 0.0 21.8 27.3 0.00 27.3 0.0 152.9 Respiratory Event Summary Total Supine ~Supine Right Left Prone REM NREM Apneas Count 4 1 3 3 0 N/A 1 3 Index 1.3 4 1 1.8 0.0 N/A 2 1 Hypopneas (4% Desat) Count 47 16 31 19 12 N/A 1 46 Index 15.1 64.0 11 11.2 10.3 N/A 2.1 17.4 Apneas & All Hypopneas Count 51 17 34 22 12 N/A 2 49 Index 16.4 68 12 13 10 N/A 4.3 18.5 Respiratory Events (Clerical Clerk+All Hyp+RERA) Count 51 17 34 22 12 N/A 2 49 Index 16.4 68 12 12.9 10.3 N/A 4.3 18.5 Respiratory Related Arousal Count 20 17 20 15 5 N/A 0 33 Index 10.6 52 7 9 4 N/A 0 12 Snoring Analysis Supine Right Left Prone REM NREM Total Snore duration 1.6 min Snores count 5 14 7 N/A 0 26 26 Snore mean duration 3.8 Sec Snores index 20 8 6 N/A 0.0 9.8 8.3 TST with snoring (%) 0.9% Desaturation Event Summary: Minimum %SpO2 Event Count Mean/Min/Max Duration(sec.) Desaturation Index % Time In Bed > 90 102 35.0 / 8.8 / 60.0 32.2 56.3 86 - 90 23 32.2 / 17.0 / 59.8 9.6 42.8 81 - 85 0 N/A 0.0 0.9 76 - 80 0 N/A 0.0 0.0 71 - 75 0 N/A 0.0 0.0 66 - 70 0 N/A 0.0 0.0 61 - 65 0 N/A 0.0 0.0 56 - 60 0 N/A 0.0 0.0 51 - 55 0 N/A 0.0 0.0 < 50 0 N/A 0.0 0.0 Total REM NREM Awake <50% 0.0 min. 0.0 min. 0.0 min. 0.0 min. 51 - 60% 0.0 min. 0.0 min. 0.0 min. 0.0 min. 61 - 70% 0.0 min. 0.0 min. 0.0 min. 0.0 min. 71 - 80% 0.0 min. 0.0 min. 0.0 min. 0.0 min. 81 - 90% 147.1 min. 19.0 min. 87.0 min. 41.1 min. 91 - 100% 189.9 min. 8.9 min. 71.6 min. 109.4 min. Average 91 90 90 91 Minimum SpO2 81 85 85 81 Desaturation Event Index 16.6 10.7 22.3 14.0 # Desat. Events below 89% 68 4 40 24 Time(%) with Saturation below 89% 12.1 1.7 7.7 2.7 Time(min.) with Saturation below 89% 40.6 5.8 25.8 9.0 Time (mins) REM (mins) NREM (mins) % of TST SpO2 Below 90% 58 4 N54 34.5 SpO2 Below 88% 23 0 0 8 Heart Rate Analysis Min (bpm) Max (bpm) Average (bpm) Awake 33 127 68 NREM 64 127 66 REM 65 70 65 Overall 64 127 65 Supplemental O2 Values Minimum O2 level: None Value Start Time End Time Ignition Specialist Comments Mr. Doan slept in the right, left and supine positions. No cardiac arrhythmia noted. PLM's were noted and made titrating difficult. No bruxism noted. CPAP was initiated at +4 CMH2O and up-titrated to a level of +12 CMH2O, which nearly eliminated all respiratory events and snoring. A large Simplus full face mask by Osman was used during titration. He awoke to use the restroom 3 times during the night. He stated that he slept worse than when at home. He asked to end the study at 5. The final report will be interpreted and signed by a sleep physician. The completed physician report will then be placed in the patient medical record. Therapy Event: Therapy (cm H20) 4 5 6 7 8 9 10 11 12 Total Time at Pressure (min.) 6.0 28.4 10.8 45.8 66.4 17.2 26.7 23.0 156.2 TST at Pressure (min.) 4.0 24.4 7.3 33.8 36.9 9.7 9.4 18.3 43.2 # Periods 1 1 1 1 1 1 1 1 1 Sleep Onset (min.) 2.0 2.5 0.0 0.0 16.6 0.0 0.0 0.2 0.0 REM Onset (min.) N/A 22.5 N/A 42.3 45.6 N/A N/A N/A 32.7 Sleep Efficiency % 66 86 67 73 55 56 35 79 27 Wakefulness (%) 33.7 14.0 32.5 26.1 44.5 43.5 64.8 20.4 72.3 Wakefulness (min.) 2.0 4.0 3.5 11.9 29.6 7.5 17.3 4.7 113.0 NREM 1 (%) 58.0 3.2 24.1 7.6 11.1 33.3 27.7 13.1 3.5 NREM 1 (min.) 3.5 0.9 2.6 3.5 7.4 5.7 7.4 3.0 5.5 NREM 2 (%) 8.3 68.7 43.4 63.0 30.1 23.2 7.5 66.5 8.8 NREM 2 (min.) 0.5 19.5 4.7 28.8 20.0 4.0 2.0 15.3 13.7 NREM 3 (%) 0.0 0.0 0.0 0.0 0.0 0.0 0.0 0.0 7.0 NREM 3 (min.) 0.0 0.0 0.0 0.0 0.0 0.0 0.0 0.0 11.0 REM (%) 0.0 14.1 0.0 3.3 14.3 0.0 0.0 0.0 8.3 REM (min.) 0.0 4.0 0.0 1.5 9.5 0.0 0.0 0.0 13.0 # Arousals 4 1 3 6 4 8 5 4 6 Arousal Index 60.0 2.5 24.8 10.6 6.5 49.3 32.0 13.1 8.3 # Snore 2 0 1 4 3 8 1 2 5 Snore Index 30.0 0.0 8.3 7.1 4.9 49.3 6.4 6.6 6.9 AHI 60.0 9.8 33.0 7.1 11.4 37.0 70.3 26.2 4.2 AHI Supine 60.0 N/A N/A N/A N/A N/A 70.6 72.0 N/A AHI Non-Supine N/A 9.8 33.0 7.1 11.4 37.0 67.5 19.0 4.2 NREM AHI 60.0 8.8 33.0 5.6 15.3 37.0 70.3 26.2 6.0 REM AHI N/A 15.0 N/A 40.0 0.0 N/A N/A N/A 0.0 RDI 60.0 9.8 33.0 7.1 11.4 37.0 70.3 26.2 4.2 # Obstructive 0 0 0 0 1 0 1 0 1 # Central Ap 0 0 0 0 0 0 0 0 0 # Mixed 0 0 0 1 0 0 0 0 0 # Hypopneas 4 4 4 3 6 6 10 8 2 RERAS 0 0 0 0 0 0 0 0 0 Total Respiratory Events 4 4 4 4 7 6 11 8 3 Time Below SpO2 89.00% (min.) 1.3 14.4 0.5 5.4 2.5 0.6 2.5 2.1 2.4 Mean NREM SpO2 (%) 89 88 91 90 91 92 90 90 91 Mean REM SpO2 (%) N/A 87 N/A 93 90 N/A N/A N/A 90 Mean Sleep SpO2 (%) 89 88 91 90 91 92 90 90 91 Min NREM SpO2 (%) 86 86 88 86 86 86 85 85 85 Min REM SpO2 (%) N/A 85 N/A 86 88 N/A N/A N/A 87 Position Supine (min.) 4.0 0.0 0.0 0.0 0.0 0.0 8.5 2.5 0.0 Position Non-supine (min.) 0.0 24.4 7.3 33.8 36.9 9.7 0.9 15.8 43.2 LM Index Sleep 0.0 4.9 239.5 191.5 138.3 190.9 166.2 164.0 145.8 LM Index NREM 0.0 2.9 239.5 187.4 171.0 190.9 166.2 164.0 186.7 LM Index REM N/A 15.0 N/A 280.0 44.2 N/A N/A N/A 50.8 Mean Heart Rate (bpm) 65 65 66 65 65 67 66 65 66 Min Heart Rate (bpm) 65 65 65 65 65 64 65 65 65
--- NOTE | 2017-01-02 08:57 | Sleep Study ---
Sleep Study Report Date of Service: 12/31/2016 Sleep Study Report Clinical data: The patient is an 86-year-old male with a BMI of 29.83. He is referred by Dr. Sanchez for a CPAP titration. The patient has symptoms of disturbed nocturnal sleep, daytime tiredness, and he has a history of atrial fibrillation and right ventricular enlargement. He had an initial diagnostic sleep study on 2016 which showed obstructive sleep apnea with an apnea-hypopnea index of 8.6. His Gray Sleepiness Scale score is 8 out of a possible 24. Sleep architecture: The total sleep period was 319.0 minutes. Total sleep time was 187.0 minutes. The sleep efficiency was severely reduced to 49 percent. The sleep latency was only 2.0 minutes. Wake after sleep onset was increased to 191.5 minutes. The REM latency was short at 26.5 minutes. Sleep consisted of stage N1 21 percent, stage N2 58 percent, stage N3 6 percent , and stage REM 15 percent. Arousal data: The patient had a total of 41 arousals including 8 spontaneous arousals, 20 respiratory arousals, and 13 PLM arousals. The arousal index was 13. PLM data: The patient had a total of 436 periodic limb movements of sleep for a PLM index severely elevated at 139.9. There were 18 arousals associated with limb movements for a PLM arousal index of 5.8. EKG: The patient's heart rates ranged from 64 to 127 beats per minute. The average heart rate was 65 beats per minute. The rhythm was regular and appeared to be a probable pacemaker rhythm. Respiratory data: The patient's respiratory events were treated with nasal CPAP up to a final pressure of 12 centimeters. He had a total of 51 respiratory events including 3 obstructive apneas, 1 mixed apnea, and 47 hypopneas. The apnea-hypopnea index was 16.4. The longest apnea was 27.3 seconds. At the final pressure of 12 centimeters the apnea-hypopnea index was 4.2 events per hour. Oximetry data: The average saturation for the night was 91 percent. The minimum saturation was 81 percent. The patient had 40.6 minutes with saturations less than 89 percent. Mdm Developer comments: The patient slept on the right, left, and supine positions. No cardiac arrhythmia noted. PLMS were noted and made titrating difficulty. No bruxism noted. CPAP was initiated at 4 centimeters and up titrated to a level of 12 centimeters which nearly eliminated all respiratory events and snoring. A large simplus fullface mask by Osman was used. The patient awaken to use the restroom 3 times during the night. Impressions: 1. Obstructive sleep apnea 2. Periodic limb movement disorder Comments: The patient had a poor sleep efficiency. This was not significantly different from his 1st night study. He fell asleep quickly but had a lot of disturb sleep. There was very little sleep after 3:10 a.m.. He appeared to have actually more apnea then he had during the diagnostic study but at the final pressure of 12 centimeters the sleep disordered breathing was improved. He had a severe increase in limb movements. He had frequent limb movements even on the 1st night study but they were markedly increased during the CPAP titration. This may happen with the resolution of sleep disordered breathing. However it could be that his limb movements are also disturbing his sleep. Thus consideration could be given to pharmacologic therapy for the limb movements as well as treating the sleep apnea. It is unknown if the patient was claustrophobic. A full face mask was utilized. He had persistence of some degree of hypoxia. The patient has a reported history of right ventricular enlargement. Thus we would like to resolve the hypoxia as much as possible. Recommendations: 1. It is advised that the patient be given a trial of nasal CPAP at 12 centimeters. 2. He could be ordered the large simplus Andrew Paykel full face mask as was utilized during the study. Alternatively he could be ordered a mask of choice particularly if he felt claustrophobic during the CPAP study. 3. Consideration could be given to concurrent treatment for the limb movement disorder. A trial of low-dose pramipexole could be considered if the patient is not allergic to this medicine and does not have any drug interactions. 4. It is suggested that after he is on CPAP for 1-2 weeks that an overnight pulse oximetry study be obtained through his home care company. This should be done with the patient wearing the CPAP to determine if he needs oxygen supplementation into the CPAP. A nocturnal polysomnogram cannot be utilized to qualify the patient for home oxygen. 5. The patient should be seen back between day 31 day 90 after receiving his CPAP as per insurance requirements. Compliance data would need to be followed. Copies To 1: Harjeet Calvo DO; Jorge Ron MD; Kareem Sanchez M.D.
== END | disposition home or self-care (01) ==
LOC: C.NEUR 20:00
PROVIDERS: ATTEND Internal Medicine Critical Care Medicine
DX: G47.30 Sleep apnea, unspecified (principal)

== ENCOUNTER 2017-01-29 19:46 | Emergency (ER) | payer OTHER ==
[~2017-01-29] VITALS: Ht 180.3 cm; Wt 105.4 kg
[2017-01-29 19:59] VITALS: Ht 180.3 cm; Wt 105.4 kg
[2017-01-29] MEDS ORDERED: VALS40TA2 PO (20:59)
[2017-01-29] MEDS ORDERED: ASPI81TA28 PO (20:59)
[2017-01-29] MEDS ORDERED: NTRGSL/4 UT (20:59)
[2017-01-29] MEDS ORDERED: PYRI100T4 PO (20:59)
[2017-01-29] MEDS ORDERED: METO50TA7 PO (20:59)
[2017-01-29 22:10] LABS: URINE BILIRUBIN NEG (NEG); URINE NITRITE NEG (NEG); URINE PH 6.5 (4.5-7.5); URINE SPECIFIC GRAVITY 1.012 (1.000-1.030); UROBILINOGEN NEG (NEG)
[2017-01-29 22:11] LABS: MANUAL MICROSCOPIC REQUIRED? NO; REVIEW REQ? NO; URINE APPEARANCE CLOUDY (CLEAR); URINE COLOR LIGHT RED
[2017-01-29 23:40] VITALS: BP 121/69; PULSE 68; TEMP 36.8; O2SAT 98
--- NOTE | 2017-01-30 01:24 | EMERGENCY ROOM VISIT NOTE ---
History Report prepared by Jacqui: Dara Collins Under the Supervision of: Dr. Jovon Craven M.D. First contact with patient: 20:03 Chief Complaint: HEMATURIA Stated Complaint: BLOOD IN URINE History of Present Illness The patient is an 86 year old male who presents to the Emergency Room with complaints of persistent hematuria starting around 1700 today. He had a bladder procedure this morning in the urology office which found enlarged blood vessels. He has been having some difficulty urinating recently which prompted the procedure. He also had a CT last month which showed some bladder distension , but no other abnormality. Around 1700, he noticed a small amount of blood in his urine. At 1930, he went to urinate and had a large amount of blood and was passing clots. He is on Xarelto for atrial fibrillation. Pt denies LOC, headache , fevers, chills, diaphoresis, visual changes, neck pain, chest pain, breathing difficulties, nausea, vomiting, abdominal pain, back pain, melena, hematochezia , numbness, weakness, lymphadenopathy, rash, or other complaints. Source of History: patient, family Onset: 1700 Position: other (global) Quality: other (hematuria) Timing: other (persistent) Review of Systems See HPI for pertinent positives and negatives. A total of ten systems were reviewed and were otherwise negative. Past Medical & Surgical Medical Problems: (1) CAD (coronary artery disease) (2) Coronary artery disease (3) Diverticulitis (4) Essential (Primary) Hypertension (5) Exertional chest pain (6) Gastro-Esophageal Reflux Disease Without Esophagitis (7) H/O heart artery stent (8) Hyperlipidemia, Unspecified (9) Pacemaker (10) Unspecified Atrial Fibrillation Family History Patient reports no known family medical history. Social History Smoking Status: Former Smoker Alcohol Use: occasionally Drug Use: none Marital Status: Housing Status: lives with family Occupation Status: retired Current/Historical Medications Scheduled Aspirin (Aspirin Ec), 81 MG PO DAILY Coenzyme Q10 (Ubidecarenone) (Co Q-10), 200 MG PO DAILY Dexlansoprazole (Dexilant), 60 MG PO TFS Fish Oil ([place]-3), 4,800 MG PO DAILY Isosorbide Mononitrate Ext Rel (Imdur Ext Rel), 120 MG PO QAM Metoprolol Succ (Toprol Xl) (Toprol-Xl), 50 MG PO DAILY Nitroglycerin (Nitrostat), 0.4 MG UT PRN Probiotic Product (Probiotic), 1 CAP PO DAILY Pyridoxine (Vitamin B6), 100 MG PO DAILY Pyridoxine Hcl (Vitamin B6 100 Mg), 100 MG PO DAILY Ranolazine (Ranexa), 1 TAB PO BID Rivaroxaban (Xarelto), 20 MG PO DAILY Valsartan (Diovan), 20 MG PO DAILY Allergies Coded Allergies: Unclassified Drugs (Verified Adverse Reaction, Unknown, sleeping medications cause oversedation, 03/09/16) Uncoded Allergies: ANESTHESIA (Adverse Reaction, Severe, NAUSEA, 08/08/16) IT TAKES THE PATIENT A LONG TIME TO COME OUT OF IT AND IT MAKES HIM NAUSEA UNK MUSCLE RELAXANT (Adverse Reaction, Unknown, GI SYMPTOMS, 08/26/15) Physical Exam Vital Signs Date Time Temp Pulse Resp B/P (MAP) Pulse Ox O2 Delivery O2 Flow Rate FiO2 01/29/17 23:40 36.8 68 18 121/69 98 01/29/17 22:10 65 18 113/65 96 Room Air 01/29/17 19:59 36.8 65 18 106/63 95 Room Air Physical Exam GENERAL: Awake, alert, well-appearing, in no distress HENT: Normocephalic, atraumatic. Oropharynx unremarkable. EYES: Normal conjunctiva. Sclera non-icteric. NECK: Supple. No nuchal rigidity. FROM. No JVD. RESPIRATORY: Clear to auscultation. CARDIAC: Regular rate, normal rhythm. Extremities warm and well perfused. Pulses equal. ABDOMEN: Soft, non-distended. No tenderness to palpation. No rebound or guarding. No masses. : Normal male. Dried blood noted by the urethra. No active bleeding. No abnormalities. MUSCULOSKELETAL: Chest examination reveals no tenderness. No joint edema. LOWER EXTREMITIES: Calves are equal size bilaterally and non-tender. Trace lower extremity edema. No discoloration. NEURO: Normal sensorium. No sensory or motor deficits noted. SKIN: No rash or jaundice noted. Medical Decision & Procedures Laboratory Results Test 01/29/17 21:32 Urine Color LIGHT RED Urine Appearance CLOUDY (CLEAR) Urine pH 6.5 (4.5-7.5) Urine Specific [place] 1.012 (1.000-1.030) Urine Protein 2+ (NEG) Urine Glucose (UA) NEG (NEG) Urine Ketones NEG (NEG) Urine Occult Blood 3+ (NEG) Urine Nitrite NEG (NEG) Urine Bilirubin NEG (NEG) Urine Urobilinogen NEG (NEG) Urine Leukocyte Esterase TRACE (NEG) Urine WBC (Auto) 1-5 /hpf (0-5) Urine RBC (Auto) >30 /hpf (0-4) Urine Hyaline Casts (Auto) 1-5 /lpf (0-5) Urine Epithelial Cells (Auto) 5-10 /lpf (0-5) Urine Bacteria (Auto) NEG (NEG) Laboratory results reviewed by me ECG Indication: other Rate (beats per minute): 65 Rhythm: other (paced rhythm) Findings: no acute ischemic change, no ectopy ED Course 2021: The patient was evaluated in room C9. A complete history and physical exam was performed. 2324: I reevaluated the patient. He was able to urinate. There was less blood and he was able to urinate more easily. I discussed the results with him. I recommended that he continue to hydrate and monitor his urine. He feels comfortable with the plan. He will be discharged home. Medical Decision Triage Nursing notes reviewed. The patient's presentation and history were concerning for hematuria Etiologies such as postoperative bleeding, coagulopathy, UTI, as well as others were entertained. The patient is evaluated. Clinically looked well. Bladder scan was performed and he was not in significant urinary retention. He had urinated prior to arrival and therefore he was given oral fluids. He went to produce a urine specimen that showed some blood but no clear signs of infection. He actually noted improvement in the bleeding. Because of this history of anticoagulation I did perform an ECG. This revealed a paced rhythm. I believe his underlying rhythm is A. fib however. He is on his relative because of stroke risk. I discussed options that included stopping his overall toe but also continue the medication. He feels comfortable with continuing the medication and watching his bleeding issues. This seems to be some just simple postoperative irritation from his urologic procedure. If he develops any urinary retention, fever, abdominal pain, significant bleeding then he will need to come back to the Emergency Room and he agrees. The patient and his feel comfortable with this plan. They will contact urology for follow-up tomorrow. I gave my usual and customary discussion regarding this issue. By the evaluation outlined above other emergent etiologies such as those listed in the differential, as well as others, were deemed relatively unlikely. The patient was educated about the findings as listed above. All questions were answered and the patient was pleased with the treatment. Return instructions were outlined and the patient was discharged in stable condition. The patient was referred to urology for follow-up for a recheck of the current condition. Medication Reconcilliation Current Medication List: was personally reviewed by me Blood Pressure Screening Patient's blood pressure: Normal blood pressure Blood pressure disposition: Did not require urgent referral Impression Primary Impression: Hematuria Scribe Attestation The scribe's documentation has been prepared under my direction and personally reviewed by me in its entirety. I confirm that the note above accurately reflects all work, treatment, procedures, and medical decision making performed by me. Departure Information Dispostion Home / Self-Care Referrals Kareem Sanchez M.D. (PCP) Forms HOME CARE DOCUMENTATION FORM, IMPORTANT VISIT INFORMATION, WORK / SCHOOL INSTRUCTIONS Patient Instructions My [facility] Additional Instructions Continue current medications. Rest and drink plenty of fluids. Call and follow up with your urologist tomorrow. Return to the emergency department for any urinary difficulty, increased bleeding, persistent bleeding, abdominal pain, back pain, or as needed.
== END 2017-01-29 23:41 | disposition home or self-care (01) ==
LOC: C.EDB 19:47 → C.EDC 23:41
DX: R31.9 Hematuria, unspecified (principal); I10 Essential (primary) hypertension; K21.9 Gastro-esophageal reflux disease without esophagitis; I48.91 Unspecified atrial fibrillation; I25.10 Atherosclerotic heart disease of native coronary artery without angina pectoris; K57.92 Diverticulitis of intestine, part unspecified, without perforation or abscess without bleeding; E78.5 Hyperlipidemia, unspecified; Z98.61 Coronary angioplasty status; Z95.0 Presence of cardiac pacemaker; Z87.891 Personal history of nicotine dependence; Z79.82 Long term (current) use of aspirin; Z79.899 Other long term (current) drug therapy

== ENCOUNTER 2017-04-26 06:41 | Emergency (ER) | payer OTHER ==
[~2017-04-26] VITALS: Ht 177.8 cm; Wt 100.8 kg
[~2017-04-26 06:41] MED LIST changes: -AMLO2.5T PO; -ASPEC81 PO; +ASPI81TA28 PO; +METO50TA7 PO; +NTRGSL/4 UT; -ROSU5TAB PO; -TPRSR50 PO
[2017-04-26 06:45] VITALS: TEMP 36.8; Ht 177.8 cm; Wt 100.8 kg
[2017-04-26] MEDS ORDERED: SODIUM CHLORIDE 0.9% 500ML 500 ML IV STA (07:01)
[2017-04-26] MEDS ORDERED: MECLIZINE HCL 25 MG TAB PO STA (07:01)
--- NOTE | 2017-04-26 07:06 | EMERGENCY ROOM VISIT NOTE ---
History Report prepared by Jacqui: Jose Thompson Under the Supervision of: Dr. Eugene Damon M.D. First contact with patient: 06:55 Chief Complaint: DIZZY Stated Complaint: EPISODES DIZZINESS,UNBALANCE,UNABLE TO MOVE W/O BUSH History of Present Illness The patient is an 86 year old male who presents to the Emergency Room with complaints of intermittent dizziness that the patient has been experiencing since Saturday, 4 days prior to arrival. The patient first noticed the dizziness Saturday night/Saturday morning when he woke up. He felt as though "the world was moving around him." Saturday throughout the day he felt better, until he put on his sleep apnea mask on Saturday night and experienced the room spinning again. Today he was dizzy as soon as he got out of bed. Laying still for a while improves his dizziness. He is not have any sinus congestion issues currently. Source of History: patient Onset: 4 days [employer] Position: head Quality: other (Dizziness) Timing: intermittent Modifying Factors (Relieving): other (Lying flat) Review of Systems See HPI for pertinent positives & negatives. A total of 10 systems reviewed and were otherwise negative. Past Medical & Surgical Medical Problems: (1) CAD (coronary artery disease) (2) Coronary artery disease (3) Diverticulitis (4) Essential (Primary) Hypertension (5) Exertional chest pain (6) Gastro-Esophageal Reflux Disease Without Esophagitis (7) H/O heart artery stent (8) Hyperlipidemia, Unspecified (9) Pacemaker (10) Unspecified Atrial Fibrillation Family History Patient reports no known family medical history. Social History Smoking Status: Never Smoker Alcohol Use: occasionally Drug Use: none Marital Status: Housing Status: lives with family Occupation Status: retired Current/Historical Medications Scheduled Amoxicillin & Pot Clavulanate (Augmentin 875-125 mg), 1 TAB PO BID Aspirin (Aspirin Ec), 81 MG PO DAILY Coenzyme Q10 (Ubidecarenone) (Co Q-10), 200 MG PO DAILY Dexlansoprazole (Dexilant), 60 MG PO TFS Fish Oil ([place]-3), 4,800 MG PO DAILY Isosorbide Mononitrate Ext Rel (Imdur Ext Rel), 120 MG PO QAM Metoprolol Succ (Toprol Xl) (Toprol-Xl), 50 MG PO DAILY Nitroglycerin (Nitrostat), 0.4 MG UT PRN Probiotic Product (Probiotic), 1 CAP PO DAILY Pyridoxine Hcl (Vitamin B6 100 Mg), 100 MG PO DAILY Ranolazine (Ranexa), 500 MG PO BID Rivaroxaban (Xarelto), 20 MG PO DAILY Valsartan (Diovan), 20 MG PO DAILY Scheduled PRN Meclizine Hcl (Meclizine Hcl), 1 TAB PO TID PRN for Dizziness or Vertigo Allergies Coded Allergies: Unclassified Drugs (Verified Adverse Reaction, Unknown, sleeping medications cause oversedation, 04/26/17) Uncoded Allergies: ANESTHESIA (Adverse Reaction, Severe, NAUSEA, 08/08/16) IT TAKES THE PATIENT A LONG TIME TO COME OUT OF IT AND IT MAKES HIM NAUSEA UNK MUSCLE RELAXANT (Adverse Reaction, Unknown, GI SYMPTOMS, 08/26/15) Physical Exam Vital Signs Date Time Temp Pulse Resp B/P (MAP) Pulse Ox O2 Delivery O2 Flow Rate FiO2 04/26/17 10:43 76 20 133/78 98 04/26/17 09:58 65 04/26/17 08:41 65 17 04/26/17 08:23 129/74 04/26/17 07:41 65 18 04/26/17 07:23 96 Room Air 04/26/17 07:23 96 Room Air 04/26/17 07:22 65 04/26/17 06:45 36.8 66 18 131/80 96 Room Air Physical Exam GENERAL: Patient is a healthy-appearing well-nourished male HEAD: Normocephalic atraumatic EYES: Ocular movements intact pupils equal and react to light OROPHARYNX mucous membranes are moist no exudates present no erythema or edema present NECK: Supple no nuchal rigidity CHEST: Good equal expansion LUNGS: Clear and equal to auscultation CARDIAC: Normal S1 and S2 ABDOMEN: Soft nontender no guarding BACK: No CVA tenderness EXTREMITIES: No pain upon palpation normal muscle strength in all groups no clubbing cyanosis or edema NEURO: Patient is following commands and answering questions appropriately. Alert and oriented x3 Cranial Nerves 2-12 grossly intact Medical Decision & Procedures ER Provider Diagnostic Interpretation: Radiology results as stated below per my review and radiologist interpretation: CHEST ONE VIEW PORTABLE CLINICAL HISTORY: Severe dizziness COMPARISON STUDY: 03/09/2016 FINDINGS: The heart remains enlarged. There is a left subclavian dual-chamber central venous pacemaker. There is no overt failure. Postsurgical changes are present on the left. There is mild right basilar atelectasis. There is equivocal minor right lower lobe bronchial wall thickening. This remains unchanged.[ IMPRESSION: Stable cardiomegaly. No evidence of overt failure. No evidence of acute parenchymal consolidation Electronically signed by: Evin Obrien M.D. 04/26/2017 7:46 AM Dictated Date/Time: 04/26/2017 7:46 AM Laboratory Results 04/26/17 07:15 Red Blood Count 4.14, Mean Corpuscular Volume 93.5, Mean Corpuscular Hemoglobin 31.4, Mean Corpuscular Hemoglobin Concent 33.6, Mean Platelet Volume 8.7, Neutrophils (%) (Auto) 63.0, Lymphocytes (%) (Auto) 27.6, Monocytes (%) (Auto) 5.8, Eosinophils (%) (Auto) 3.2, Basophils (%) (Auto) 0.3, Neutrophils # (Auto) 4.33, Lymphocytes # (Auto) 1.90, Monocytes # (Auto) 0.40, Eosinophils # (Auto) 0.22, Basophils # (Auto) 0.02 04/26/17 07:15 Test 04/26/17 07:12 04/26/17 07:15 04/26/17 09:00 Bedside Glucose 182 mg/dl (70-99) White Blood Count 6.88 K/uL (4.8-10.8) Red Blood Count 4.14 M/uL (4.7-6.1) Hemoglobin 13.0 g/dL (14.0-18.0) Hematocrit 38.7 % (42-52) Mean Corpuscular Volume 93.5 fL (80-100) Mean Corpuscular Hemoglobin 31.4 pg (25-34) Mean Corpuscular Hemoglobin Concent 33.6 g/dl (32-36) Platelet Count 198 K/uL (130-400) Mean Platelet Volume 8.7 fL (7.4-10.4) Neutrophils (%) (Auto) 63.0 % Lymphocytes (%) (Auto) 27.6 % Monocytes (%) (Auto) 5.8 % Eosinophils (%) (Auto) 3.2 % Basophils (%) (Auto) 0.3 % Neutrophils # (Auto) 4.33 K/uL (1.4-6.5) Lymphocytes # (Auto) 1.90 K/uL (1.2-3.4) Monocytes # (Auto) 0.40 K/uL (0.11-0.59) Eosinophils # (Auto) 0.22 K/uL (0-0.5) Basophils # (Auto) 0.02 K/uL (0-0.2) RDW Standard Deviation 49.3 fL (36.4-46.3) RDW Coefficient of Variation 14.5 % (11.5-14.5) Immature Granulocyte % (Auto) 0.1 % Immature Granulocyte # (Auto) 0.01 K/uL (0.00-0.02) Calcium Level 8.6 mg/dl (8.5-10.1) Total Bilirubin 1.0 mg/dl (0.2-1) Direct Bilirubin mg/dl (0-0.2) Aspartate Amino Transf (AST/SGOT) 21 U/L (15-37) Alanine Aminotransferase (ALT/SGPT) 17 U/L (12-78) Alkaline Phosphatase 46 U/L (45-117) Total Creatine Kinase 64 U/L (39-308) Creatine Kinase MB 1.0 ng/ml (0.5-3.6) Creatine Kinase MB Ratio 1.6 (0-3.0) Troponin I < 0.015 ng/ml (0-0.045) Total Protein 7.3 gm/dl (6.4-8.2) Albumin 3.4 gm/dl (3.4-5.0) Thyroid Stimulating Hormone (TSH) 4.050 uIu/ml (0.300-4.500) Chemistry Specimen Hemolysis Urine Color DK YELLOW Urine Appearance CLEAR (CLEAR) Urine pH 5.5 (4.5-7.5) Urine Specific [place] 1.021 (1.000-1.030) Urine Protein NEG (NEG) Urine Glucose (UA) NEG (NEG) Urine Ketones NEG (NEG) Urine Occult Blood TRACE (NEG) Urine Nitrite NEG (NEG) Urine Bilirubin NEG (NEG) Urine Urobilinogen NEG (NEG) Urine Leukocyte Esterase TRACE (NEG) Urine WBC (Auto) 1-5 /hpf (0-5) Urine RBC (Auto) 5-10 /hpf (0-4) Urine Hyaline Casts (Auto) 0 /lpf (0-5) Urine Epithelial Cells (Auto) 0-5 /lpf (0-5) Urine Bacteria (Auto) NEG (NEG) Labs reviewed by ED physician. Medications Administered Medications (Trade) Dose Ordered Sig/[place] Route Start Time Stop Time Status Last Admin Dose Admin Sodium Chloride 500 ml @ 999 mls/hr Q31M STAT IV 04/26/17 07:01 04/26/17 07:31 DC 04/26/17 07:11 999 MLS/HR Meclizine HCl (Antivert Tab) 25 mg NOW STAT PO 04/26/17 07:01 04/26/17 07:05 DC 04/26/17 07:11 25 MG Diazepam (Valium Inj) 2.5 mg NOW STAT IV 04/26/17 08:43 04/26/17 08:45 DC 04/26/17 09:12 2.5 MG Amoxicillin/ Clavulanate Potassium (Augmentin Tab) 875 mg ONE STAT PO 04/26/17 08:43 04/26/17 08:45 DC 04/26/17 09:12 875 MG Sodium Chloride ([place] Nasal [place]) 2 sprays NOW STAT NA 04/26/17 08:43 04/26/17 08:45 DC 04/26/17 09:12 2 SPRAYS Ondansetron HCl (Zofran Inj) 4 mg NOW STAT IV 04/26/17 08:44 04/26/17 08:45 DC 04/26/17 09:12 4 MG ECG Indication: diaphoresis Rate (beats per minute): 65 Rhythm: other (Ventricularly Paced Rhythm) Findings: no acute ischemic change, paced rhythm, no ectopy ED Course 0657: Past medical records reviewed. The patient was evaluated in room B3. A complete history and physical examination was performed. 0700: I performed a bedside US at this time. The FAST Exam was unremarkable. 0701: Ordered Antivert 25 mg PO, Sodium Chloride 500 mL @ 999 mL/hr IV. 0843: Ordered Sodium Chloride 2 sprays INH, Amoxicillin 875 mg PO, Diazepam 2.5 mg IV, Zofran 4 mg IV. 0957:: Upon reexamination the patient is resting in bed. I discussed results and treatment plan with the patient. He verbalizes agreement and understanding. The patient is ready for discharge. Medical Decision Differential diagnosis: Etiologies such as benign positional vertigo, dehydration, hypovolemia, anemia, tumor, infection, hypoglycemia, electrolyte abnormalities, cardiac sources, intracerebral event, toxicologic, neurologic, as well as others were entertained. This is an 86-year-old male who presents emergency department complaining of severe dizziness. Patient was given meclizine in the emergency department as the patient's dizziness appears to be related to motion. In addition he has a normal CAT scan of the head. As his symptoms have been ongoing for longer than 12 hours I would expect his CAT scan of the head to be positive if this were a CVA. Regardless it is not. Patient was given normal saline bolus as well as Valium. Repeat examination revealed improvement patient's symptoms. The patient does appear to have sinusitis on CAT scan therefore he was placed on Augmentin. I strongly recommended to the patient that he be admitted due to my fear of him falling however the patient is adamantly refusing admission. Impression Primary Impression: Vertigo Scribe Attestation The scribe's documentation has been prepared under my direction and personally reviewed by me in its entirety. I confirm that the note above accurately reflects all work, treatment, procedures, and medical decision making performed by me. Departure Information Dispostion Home / Self-Care Prescriptions Amoxicillin & Pot Clavulanate (Augmentin 875-125 mg) 1 Tab Tab 1 TAB PO BID for 10 Days, #20 TAB Prov: Eugene Damon MD 04/26/17 Meclizine Hcl (MECLIZINE HCL) 25 Mg Tab 1 TAB PO TID Y for Dizziness or Vertigo for 10 Days, #30 TAB Prov: Eugene Damon MD 04/26/17 Referrals Kareem Sanchez M.D. (PCP) Forms HOME CARE DOCUMENTATION FORM, IMPORTANT VISIT INFORMATION Patient Instructions My [facility] Additional Instructions Follow up with Dr Mooney's office You have been examined and treated today on an emergency basis only. This is not a substitute for, or an effort to provide, complete comprehensive medical care. It is impossible to recognize and treat all injuries or illnesses in a single emergency department visit. It is therefore important that you follow up closely with Dr Sanchez. Call as soon as possible for an appointment. Thank you for your time and consideration. I look forward to speaking with you again soon. Please don't hesitate to call us if you have any questions.
[2017-04-26 07:23] VITALS: O2SAT 96
[2017-04-26 07:33] LABS: BASO % 0.3 %; BASO ABS # 0.02 K/uL (0-0.2); EOS % 3.2 %; EOS ABS # 0.22 K/uL (0-0.5); HEMATOCRIT 38.7 % (42-52); IG# 0.01 K/uL (0.00-0.02); LYMPH % 27.6 %; MEAN CELL VOLUME 93.5 fL (80-100); MEAN CORPUSCULAR HEMOGLOBIN 31.4 pg (25-34); MEAN CORPUSCULAR HGB CONC 33.6 g/dl (32-36); MEAN PLATELET VOLUME 8.7 fL (7.4-10.4); MONO % 5.8 %; NEUT ABS # 4.33 K/uL (1.4-6.5); PLATELET COUNT 198 K/uL (130-400); RED CELL DISTRIBUTION WIDTH CV 14.5 % (11.5-14.5); RED CELL DISTRIBUTION WIDTH SD 49.3 fL (36.4-46.3); WHITE BLOOD COUNT 6.88 K/uL (4.8-10.8)
--- NOTE | 2017-04-26 07:48 | DIAGNOSTIC IMAGING REPORT ---
CHEST ONE VIEW PORTABLE CLINICAL HISTORY: Severe dizziness COMPARISON STUDY: 03/09/2016 FINDINGS: The heart remains enlarged. There is a left subclavian dual-chamber central venous pacemaker. There is no overt failure. Postsurgical changes are present on the left. There is mild right basilar atelectasis. There is equivocal minor right lower lobe bronchial wall thickening. This remains unchanged.[ IMPRESSION: Stable cardiomegaly. No evidence of overt failure. No evidence of acute parenchymal consolidation Electronically signed by: Evin Obrien M.D. 04/26/2017 7:46 AM Dictated Date/Time: 04/26/2017 7:46 AM
[2017-04-26 07:55] LABS: ALBUMIN 3.4 gm/dl (3.4-5.0); ALT/SGPT 17 U/L (12-78); AST/SGOT 21 U/L (15-37); BLOOD UREA NITROGEN 13 mg/dl (7-18); CALCIUM 8.6 mg/dl (8.5-10.1); CARBON DIOXIDE 24 mmol/L (21-32); CREATININE 0.89 mg/dl (0.60-1.40); GLUCOSE 155 mg/dl (70-99); POTASSIUM 4.2 mmol/L (3.5-5.1); SODIUM 137 mmol/L (136-145)
[2017-04-26 08:01] LABS: ALKALINE PHOSPHATASE 46 U/L (45-117); TOTAL PROTEIN 7.3 gm/dl (6.4-8.2)
--- NOTE | 2017-04-26 08:24 | DIAGNOSTIC IMAGING REPORT ---
CT SCAN OF THE BRAIN WITHOUT IV CONTRAST CLINICAL HISTORY: Dizziness. COMPARISON STUDY: CT of the brain dated 08/22/2016. TECHNIQUE: Unenhanced axial CT scan of the brain is performed from the vertex to the skull base. A dose lowering technique was utilized adhering to the principles of ALARA. CT DOSE: 537.48 mGy.cm FINDINGS: Brain parenchyma: There are age-related involutional changes noting moderate subcortical and periventricular microangiopathic change. There is no hemorrhage, mass effect, or evidence of acute territorial ischemia by CT criteria. [place]-white matter is preserved. No extra-axial fluid collection is seen. Ventricles, sulci, cisterns: Prominent secondary to involutional change. Intracranial vasculature: There is atherosclerotic calcification of the cavernous carotid and vertebral arteries. Calvarium: Unremarkable. Sinuses and mastoids: There is opacification of the right maxillary antrum. Moderate mucosal thickening is seen in the left maxillary antrum. Mild mucosal thickening is identified throughout the ethmoid sinuses. The mastoid air cells are well pneumatized. Orbits: The bony orbits are grossly intact. There are bilateral ocular lens implants. IMPRESSION: 1. There is no hemorrhage, mass effect, or evidence of acute territorial ischemia by CT criteria. 2. Paranasal sinus disease as above Electronically signed by: Hank Humphries M.D. 04/26/2017 8:22 AM Dictated Date/Time: 04/26/2017 8:20 AM
[2017-04-26] MEDS ORDERED: AMOXICILLIN/CLAVULANATE TAB 875 MG TAB PO STA (08:43)
[2017-04-26] MEDS ORDERED: DIAZEPAM INJ 5 MG/ML 2 ML CARP IV STA (08:43)
[2017-04-26] MEDS ORDERED: SODIUM CHLORIDE 0.65% NA SOLN 45 ML (OCEAN) STA (08:43)
[2017-04-26] MEDS ORDERED: ONDANSETRON INJ 2 MG/ML 2 ML VIAL IV STA (08:44)
[2017-04-26] MEDS ORDERED: AMOX875T PO (09:53)
[2017-04-26] MEDS ORDERED: MECL1TAB42 PO (09:53)
[2017-04-26 10:43] VITALS: BP 133/78; PULSE 76; O2SAT 98
== END 2017-04-26 10:40 | disposition home or self-care (01) ==
LOC: C.EDB 06:43
DX: R42 Dizziness and giddiness (principal); I25.10 Atherosclerotic heart disease of native coronary artery without angina pectoris; I10 Essential (primary) hypertension; K21.9 Gastro-esophageal reflux disease without esophagitis; E78.5 Hyperlipidemia, unspecified; Z95.0 Presence of cardiac pacemaker; I48.91 Unspecified atrial fibrillation; Z79.82 Long term (current) use of aspirin

== ENCOUNTER 2017-08-06 19:46 | Emergency (ER) | payer OTHER ==
[~2017-08-06] VITALS: Ht 177.8 cm; Wt 107.0 kg
[~2017-08-06 19:46] MED LIST changes: -METO50TA7 PO; +METO50TA8 PO
[2017-08-06 19:58] VITALS: TEMP 36.7; Ht 177.8 cm; Wt 107.0 kg
[2017-08-06] MEDS ORDERED: OXYMETAZOLINE HCL 0.05% NA SPR 15 ML BTL ONE (20:20)
--- NOTE | 2017-08-06 20:59 | EMERGENCY ROOM VISIT NOTE ---
History First contact with patient: 20:05 Chief Complaint: NOSE BLEED (MINOR) Stated Complaint: BLOODY NOSE FOR MORE THAN I HOUR History of Present Illness The patient is a 87 year old male who presents to the Emergency Room via private vehicle with complaints of "bloody nose for more than 1 hour". The patient states that earlier today around 6:30 PM he got out of the car and felt something on his nose and noticed that it was bloody. He has had a steady trickle from the nose since that time. Now the bleeding is beginning to slow down. He denies any history of nosebleeds but believes he is also on a blood thinner which may be Xarelto. He denies any trauma or injury. Review of Systems A complete 6-point Review of Systems was discussed with the patient, with pertinent positives and negatives listed in the History of Present Illness. All remaining Review of Systems questions can be considered negative unless otherwise specified. Past Medical/Surgical History Medical Problems: (1) CAD (coronary artery disease) (2) Coronary artery disease (3) Diverticulitis (4) Essential (Primary) Hypertension (5) Exertional chest pain (6) Gastro-Esophageal Reflux Disease Without Esophagitis (7) H/O heart artery stent (8) Hyperlipidemia, Unspecified (9) Pacemaker (10) Unspecified Atrial Fibrillation Family History Patient reports no known family medical history. Social History Smoking Status: Former Smoker Alcohol Use: occasionally Drug Use: none Marital Status: Housing Status: lives with family Occupation Status: retired Current/Historical Medications Scheduled Aspirin (Aspirin Ec), 81 MG PO DAILY Coenzyme Q10 (Ubidecarenone) (Co Q-10), 200 MG PO DAILY Dexlansoprazole (Dexilant), 60 MG PO TFS Fish Oil ([place]-3), 4,800 MG PO DAILY Isosorbide Mononitrate Ext Rel (Imdur Ext Rel), 120 MG PO QAM Metoprolol Succ (Toprol Xl) (Toprol-Xl), 50 MG PO DAILY Nitroglycerin (Nitrostat), 0.4 MG UT PRN Probiotic Product (Probiotic), 1 CAP PO DAILY Pyridoxine Hcl (Vitamin B6 100 Mg), 100 MG PO DAILY Ranolazine (Ranexa), 500 MG PO BID Rivaroxaban (Xarelto), 20 MG PO DAILY Valsartan (Diovan), 20 MG PO DAILY Physical Exam Vital Signs Date Time Temp Pulse Resp B/P (MAP) Pulse Ox O2 Delivery O2 Flow Rate FiO2 08/06/17 21:07 66 18 114/66 93 Room Air 08/06/17 19:58 36.7 66 18 113/70 96 Room Air Physical Exam VITAL SIGNS - Vital signs and nursing notes were reviewed. Stable. GENERAL -87-year-old male appearing his stated age who is in no acute distress. Communicates well with provider and answers questions appropriately. SKIN - Without rashes. No meningeal or petechial rash. HEAD - NC/AT. EYES - PERRL with EOMI bilaterally. Sclera anicteric. No hyphema. EARS - No deformities of external structures noted on gross examination bilaterally. No hemotympanum. NOSE - Midline and without cyanosis. The right nostril does reveal a small excoriated area on the septal region just inside the nostril. This appears to be irritated. A small trickle of blood is coming from this region. No arterial /pulsatile flow. No evidence of posterior bleed. Left nostril unremarkable. MOUTH/OROPHARYNX - Without perioral cyanosis. No blood in the posterior pharynx. Medical Decision & Procedures Medications Administered Medications (Trade) Dose Ordered Sig/Sebas Route Start Time Stop Time Status Last Admin Dose Admin Oxymetazoline HCl (Afrin 0.05% Nasal [place]) 75 sprays STK-MED ONCE .ROUTE 08/06/17 20:20 08/06/17 20:21 DC 08/06/17 20:20 75 SPRAYS Medical Decision Patient was seen and evaluated as above in room D6. Review was performed of nursing notes and vital signs. After obtaining a thorough history and physical examination it appeared that the patient was experiencing a small nosebleed from the right distal septal region. It appears to be irritated/excoriated. There does not appear to be any other underlying pathology. Afrin trial was initiated. He was reevaluated and there was no more bleeding. Given that this is an isolated episode and he is on Xarelto I do not believe that blood work is warranted. His vital signs are stable and he notes that he has not lost much blood. No signs of hypovolemia. He is to follow with his family doctor or return with worsening. He was given a clamp and Afrin to take to utilize if he develops a nosebleed. If he cannot get to stop within 15 minutes he is to return. The patient was educated upon management, had questions answered prior to discharge, and was discharged home in good condition. Medication list reviewed. Blood pressure normal. In the evaluation and treatment of this patient the following differential diagnoses were entertained: Anterior epistaxis, posterior epistaxis, among others. Impression Primary Impression: Anterior epistaxis Departure Information Dispostion Home / Self-Care Condition GOOD Referrals Kareem Sanchez M.D. (PCP) Aleyda Braden M.D. Patient Instructions My [facility] [address] Additional Instructions You have been treated in the Emergency Department today for your Nose Bleed ( Epistaxis). Please use the Afrin nasal spray when you experience a nosebleed clamp the nose for 15 minutes. If it persists please return. Do NOT blow your nose for the next few days. This can result in recurrence of your nosebleed. You should consider using a humidifier to help moisten the air and decrease instances of nosebleeds. You can use [id number] saline nasal sprays to help moisten the nasal mucosa and decrease instances of nosebleeds. As with any trip to the Emergency Department, you should follow-up with your Primary Care Provider from today's visit. You may need to see an ear nose and throat doctor, of which the number has been listed here. Return to the emergency department if your symptoms persist despite treatment plan outlined above or if the following symptoms occur: uncontrollable nosebleed , dizziness, lightheadedness, pre-syncope, or re-bleed.
[2017-08-06 21:07] VITALS: BP 114/66; PULSE 66; O2SAT 93
== END 2017-08-06 21:07 | disposition home or self-care (01) ==
LOC: C.EDB 19:48 → C.EDD 21:07
DX: R04.0 Epistaxis (principal); I25.10 Atherosclerotic heart disease of native coronary artery without angina pectoris; I10 Essential (primary) hypertension; Z95.0 Presence of cardiac pacemaker; Z79.01 Long term (current) use of anticoagulants

== ENCOUNTER 2017-08-13 20:30 | Emergency (ER) | payer OTHER ==
[~2017-08-13] VITALS: Ht 177.8 cm; Wt 101.8 kg
[2017-08-13 20:50] VITALS: TEMP 36.6; Ht 177.8 cm; Wt 101.8 kg
[2017-08-13] MEDS ORDERED: OXYMETAZOLINE HCL 0.05% NA SPR 15 ML BTL ONE (21:07)
[2017-08-13] MEDS ORDERED: SILVER NITR/POTASSIUM NITRATE APPLICATOR ONE (21:50)
--- NOTE | 2017-08-13 21:57 | EMERGENCY ROOM VISIT NOTE ---
History Report prepared by Jacqui: Linda Boone Under the Supervision of: Dr. Eugene Saeed D.O. First contact with patient: 21:45 Chief Complaint: NOSE BLEED (MINOR) Stated Complaint: NOSE BLEED History of Present Illness The patient is an 87 year old male who presents to the Emergency Room with complaints of persistent nose bleed [employer]. The patient states his nose is bleeding from his right naris. The patient was recently seen in the ED for similar symptoms one week ago. He regularly takes Xarelto and Aspirin. He has a history of atrial fibrillation. He denies any headache. 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 A total of 10 systems reviewed and were otherwise negative. Past Medical & Surgical Medical Problems: (1) CAD (coronary artery disease) (2) Coronary artery disease (3) Diverticulitis (4) Essential (Primary) Hypertension (5) Exertional chest pain (6) Gastro-Esophageal Reflux Disease Without Esophagitis (7) H/O heart artery stent (8) Hyperlipidemia, Unspecified (9) Pacemaker (10) Unspecified Atrial Fibrillation Family History Cancer Heart disease Hypertension Kidney disease Kidney stones Social History Smoking Status: Former Smoker Alcohol Use: occasionally Drug Use: none Marital Status: Housing Status: lives with family Occupation Status: retired Current/Historical Medications Scheduled Aspirin (Aspirin Ec), 81 MG PO DAILY Coenzyme Q10 (Ubidecarenone) (Co Q-10), 200 MG PO DAILY Dexlansoprazole (Dexilant), 60 MG PO TFS Fish Oil ([place]-3), 4,800 MG PO DAILY Isosorbide Mononitrate Ext Rel (Imdur Ext Rel), 120 MG PO QAM Metoprolol Succ (Toprol Xl) (Toprol-Xl), 50 MG PO DAILY Nitroglycerin (Nitrostat), 0.4 MG UT PRN Probiotic Product (Probiotic), 1 CAP PO DAILY Pyridoxine Hcl (Vitamin B6 100 Mg), 100 MG PO DAILY Ranolazine (Ranexa), 500 MG PO BID Rivaroxaban (Xarelto), 20 MG PO DAILY Valsartan (Diovan), 20 MG PO DAILY Allergies Coded Allergies: Unclassified Drugs (Verified Adverse Reaction, Unknown, sleeping medications cause oversedation, 04/26/17) Uncoded Allergies: ANESTHESIA (Adverse Reaction, Severe, NAUSEA, 08/08/16) IT TAKES THE PATIENT A LONG TIME TO COME OUT OF IT AND IT MAKES HIM NAUSEA UNK MUSCLE RELAXANT (Adverse Reaction, Unknown, GI SYMPTOMS, 08/26/15) Physical Exam Vital Signs Date Time Temp Pulse Resp B/P (MAP) Pulse Ox O2 Delivery O2 Flow Rate FiO2 08/13/17 20:50 36.6 76 20 103/63 97 Room Air Physical Exam CONSTITUTIONAL/VITAL SIGNS: Reviewed / noted above. GENERAL: Non-toxic in appearance. INTEGUMENTARY: Warm, dry, and [place]. HEAD: Normocephalic. EYES: without scleral icterus or trauma. ENT/OROPHARYNX: clear and moist. Small vessel in right naris appeared to have been bleeding, no active bleeding. LYMPHADENOPATHY/NECK: Is supple without lymphadenopathy or meningismus. RESPIRATORY: Lungs clear and equal. CARDIOVASCULAR: Regular rate and rhythm. GI/ABDOMEN: Soft and nontender. No organomegaly or pulsatile mass. No rebound or guarding. Normal bowel sounds. EXTREMITIES: Warm and well perfused. BACK: No CVA tenderness. NEUROLOGICAL: Intact without focal deficits. PSYCHIATRIC: normal affect. MUSCULOSKELETAL: Normally developed with good muscle tone. Medical Decision & Procedures Medications Administered Medications (Trade) Dose Ordered Sig/Sebas Route Start Time Stop Time Status Last Admin Dose Admin Oxymetazoline HCl (Afrin 0.05% Nasal [place]) 75 sprays STK-MED ONCE .ROUTE 08/13/17 21:07 08/13/17 21:08 DC 08/13/17 21:07 75 SPRAYS Silver Nitrate/ Potassium Nitrate (Silver Nitrate Applicators) 1 appl STK-MED ONCE .ROUTE 08/13/17 21:50 08/13/17 21:51 DC 08/13/17 21:50 1 APPL ED Course 2106: Ordered Afrin 2 sprays IN 2146: Previous medical records were reviewed. The patient was evaluated in room A12B. A complete history and physical examination was performed. I cauterized the vessel in the right naris with silver nitrate. I discussed the results and treatment plan with the patient. I answered all pertaining questions that he had. He expressed understanding and verbalized agreement. The patient will be discharged home. 2149: Ordered Silver Nitrate 1 appl IN Medical Decision Differential diagnosis: Etiologies such as anterior epistaxis, coagulopathy, traumatic injury, fracture , septal hematoma, posterior epistaxis as well as other pathologies were entertained. This is an 87-year-old male who presents to the ED with a chief complaint of nosebleed. The patient has had these in the past. He is on Xarelto. The patient states that his nose started bleeding around 4 PM. On his presentation , his nose is currently not bleeding. It was on the right side. His exam reveals no posterior oropharyngeal bleeding or active bleeding from the nares. The patient's exam is otherwise unremarkable. He did have a small blood vessel that appeared to be bleeding in the right anterior septum that was cauterized with silver nitrate. He was felt to be stable for discharge. Medication Reconcilliation Current Medication List: was personally reviewed by me Blood Pressure Screening Patient's blood pressure: Normal blood pressure Impression Primary Impression: Nosebleed Scribe Attestation The scribe's documentation has been prepared under my direction and personally reviewed by me in its entirety. I confirm that the note above accurately reflects all work, treatment, procedures, and medical decision making performed by me. Departure Information Dispostion Home / Self-Care Referrals Kareem Sanchez M.D. (PCP) Patient Instructions My [facility] Additional Instructions Use nasal compression device if the nose starts bleeding again.
[2017-08-13 22:04] VITALS: BP 104/50; PULSE 65; O2SAT 93
== END 2017-08-13 22:05 | disposition home or self-care (01) ==
LOC: C.EDB 20:31 → C.EDA 22:05
DX: R04.0 Epistaxis (principal); I48.91 Unspecified atrial fibrillation; I25.10 Atherosclerotic heart disease of native coronary artery without angina pectoris; I10 Essential (primary) hypertension; K21.9 Gastro-esophageal reflux disease without esophagitis; Z95.0 Presence of cardiac pacemaker; Z87.891 Personal history of nicotine dependence; Z82.49 Family history of ischemic heart disease and other diseases of the circulatory system; Z84.1 Family history of disorders of kidney and ureter; Z98.61 Coronary angioplasty status; Z88.4 Allergy status to anesthetic agent; Z88.8 Allergy status to other drugs, medicaments and biological substances; Z79.01 Long term (current) use of anticoagulants; Z79.82 Long term (current) use of aspirin; Z79.899 Other long term (current) drug therapy